=== PATIENT | female | born 1965 | race Caucasian/White ===

== ENCOUNTER → 2016-07-23 | Outpatient (CLI) | payer BC ==
--- NOTE | 2016-07-26 09:44 | MM ---
Reason for exam: screening (asymptomatic). Last mammogram was performed 1 year and 7 months ago. History: Family history of breast cancer in mother at age 68. Physical Findings: A clinical breast exam by your physician is recommended on an annual basis and results should be correlated with mammographic findings. MG 3D Screening Mammo W/Cad Bilateral CC and MLO view(s) were taken. Prior study comparison: December 25, 2014, bilateral MG 3d screening mammo w/cad. December 18, 2010, bilateral digital screening mammo w/CAD. The breast tissue is heterogeneously dense. This may lower the sensitivity of mammography. There is no discrete abnormality. ASSESSMENT: Negative, BI-RAD 1 RECOMMENDATION: Routine screening mammogram of both breasts in 1 year.
== END | disposition home or self-care (01) ==
LOC: RADMAMWWP 13:40
PROVIDERS: ATTEND Obstetrics & Gynecology
DX: Z12.31 Encounter for screening mammogram for malignant neoplasm of breast (principal); Z80.3 Family history of malignant neoplasm of breast
CPT/HCPCS: 77063; G0202

== ENCOUNTER → 2017-06-07 | Outpatient (CLI) | payer BC ==
--- NOTE | 2017-06-07 09:32 | MM ---
Reason for exam: clinical finding. Last mammogram was performed 10 months ago. History: Family history of breast cancer in mother at age 68. Physical Findings: Nurse Summary: 0.5cm nodule in the right breast at 1 o'clock (nurse ms). MG 3D Diag Mammo W/Cad SAAD Bilateral CC and MLO view(s) were taken. Prior study comparison: July 23, 2016, bilateral MG 3d screening mammo w/cad. December 25, 2014, bilateral MG 3d screening mammo w/cad. The breast tissue is heterogeneously dense. This may lower the sensitivity of mammography. Asymmetric breast tissue right subareolar, stable. There is no discrete abnormality. These results were verbally communicated with the patient and result sheet given to the patient on 06/07/17. ASSESSMENT: Incomplete: need additional imaging evaluation, BI-RAD 0 RECOMMENDATION: Ultrasound of the right breast. (palpable by nurse and patient)
--- NOTE | 2017-06-07 09:35 | USB ---
Reason for exam: additional evaluation requested from abnormal screening. History: Family history of breast cancer in mother at age 68. US Breast RT Right breast ultrasound includes all four quadrants, the retroareolar region and axilla. Finding demonstrates no cystic or solid lesion seen. Duct ectasia at the posterior nipple. These results were verbally communicated with the patient and result sheet given to the patient on 06/07/17. ASSESSMENT: Negative, BI-RAD 1 RECOMMENDATION: Return to routine screening mammogram schedule for both breasts. Manage on a clinical basis with regard to right palpable than comes and goes.
== END | disposition home or self-care (01) ==
LOC: RADMAMWWP 08:23
PROVIDERS: ATTEND Obstetrics & Gynecology
DX: N63.10 Unspecified lump in the right breast, unspecified quadrant (principal); R92.8 Other abnormal and inconclusive findings on diagnostic imaging of breast; Z80.3 Family history of malignant neoplasm of breast
CPT/HCPCS: 77062; 77066

== ENCOUNTER → 2018-07-05 | Outpatient (CLI) | payer BC ==
--- NOTE | 2018-07-06 09:58 | MM ---
Reason for exam: screening (asymptomatic). Last mammogram was performed 1 year and 1 month ago. History: Patient is postmenopausal. Family history of breast cancer in mother at age 68. Physical Findings: A clinical breast exam by your physician is recommended on an annual basis and results should be correlated with mammographic findings. MG 3D Screening Mammo W/Cad Bilateral CC and MLO view(s) were taken. Prior study comparison: June 07, 2017, bilateral MG 3d diag mammo w/cad SAAD. July 23, 2016, bilateral MG 3d screening mammo w/cad. The breast tissue is heterogeneously dense. This may lower the sensitivity of mammography. Finding: There is a 6 mm equal density (isodense) mass in the subareolar position of the right breast. ASSESSMENT: Incomplete: need additional imaging evaluation, BI-RAD 0 RECOMMENDATION: Special view mammogram and ultrasound of the right breast. [facility] will attempt to contact patient to return for supplemental views and ultrasound.
== END | disposition home or self-care (01) ==
LOC: RADMAMWWP 11:12
PROVIDERS: ATTEND Obstetrics & Gynecology
DX: Z12.31 Encounter for screening mammogram for malignant neoplasm of breast (principal); Z80.3 Family history of malignant neoplasm of breast
CPT/HCPCS: 77063; 77067

== ENCOUNTER → 2018-07-11 | Outpatient (CLI) | payer BC ==
--- NOTE | 2018-07-12 10:21 | MM ---
Reason for exam: additional evaluation requested from abnormal screening. Last mammogram was performed less than 1 month ago. History: Patient is postmenopausal. Family history of breast cancer in mother at age 68. Took hormonal contraceptives for 20 years beginning at age 18. Physical Findings: Nurse Summary: 0.5cm nodule in the right breast at 1 o'clock (nurse cw). MG 3D Work Up W/Cad RT Spot compression CC, spot compression MLO, and ML view(s) were taken of the right breast. Prior study comparison: July 05, 2018, bilateral MG 3d screening mammo w/cad. June 07, 2017, bilateral MG 3d diag mammo w/cad SAAD. The breast tissue is heterogeneously dense. This may lower the sensitivity of mammography. These results were verbally communicated with the patient and result sheet given to the patient on 07/11/18. ASSESSMENT: Incomplete: need additional imaging evaluation, BI-RAD 0 RECOMMENDATION: Ultrasound of the right breast.
--- NOTE | 2018-07-12 10:23 | USB ---
Reason for exam: additional evaluation requested from abnormal screening. History: Patient is postmenopausal. Family history of breast cancer in mother at age 68. Took hormonal contraceptives for 20 years beginning at age 18. US Breast Workup Limited RT Right limited breast ultrasound including focal area of concern, retroareolar and axilla demonstrates possible debris filled duct at the posterior nipple. These results were verbally communicated with the patient and result sheet given to the patient on 07/11/18. ASSESSMENT: Suspicious, BI-RAD 4 RECOMMENDATION: Surgical consultation of the right breast. Called Dr. Ramos with mammographic findings and has scheduled an appointment for the patient for 07/14/18 at 3:[address] Nayak. PRELIMINARY REPORT CALLED AND FAXED TO DR. NAYAK ON 07/12/18.
== END | disposition home or self-care (01) ==
LOC: RADMAMWWP 14:57
PROVIDERS: ATTEND Obstetrics & Gynecology
DX: R92.8 Other abnormal and inconclusive findings on diagnostic imaging of breast (principal)
CPT/HCPCS: 77061; 77065

== ENCOUNTER → 2018-07-14 | Outpatient (CLI) | payer BC ==
[2018-07-14 15:49] VITALS: BP 130/85; PULSE 62; RESP 18; TEMP 97.9; BMI 20.1
--- NOTE | 2018-07-14 16:58 | P.GSHP ---
History of Present Illness H&P Date: 07/14/18 Chief Complaint: abnormal mammogram and ultrasound of the right breast The patient is a 53 year old white female who noted an area of nodularity in her right breast in the 12:00. Area over area for about one year. The area did not show anything of concern radiographically last year. She does have come clear liquid that drains periodically from this site. She has never noted any blood from the nipple area. The drainage is only on the right side. She had a routine mammogram performed on 515 which revealed a 6 mm equal density mass in the subareolar position of the right breast. [place] [address] which revealed a debris filled duct at the posterior nipple area. She has not had any trauma, infection, or biopsies of the breast in the past. She has no pain in her breasts. Patient drinks coffee in the AM, no pop, or other caffeine. The patient is not taking any hormones. She is postmenopausal. Family history: 1. mother: mid 60's breast cancer, colon cancer 2. paternal aunts 2 : colon Hormonal history: Menarche: 11 first born at 24, did not breast feed menopause: 51 BCP: 15 years hormones: approximately 3 years ago, not since Past surgical history: 1. ACL right knee 2. meniscus right knee Medical history: Negative Social history: Smoking: Negative alcohol: wine 5 nights/week drugs: none - Constitutional Constitutional: Reports sweats - EENT Eyes: denies blurred vision, denies pain Ears: left: decreased hearing, deny: tinnitus Ears, nose, mouth and throat: Denies headache, Denies sore throat - Breasts Breasts: bilateral: as per HPI - Cardiovascular Cardiovascular: Denies chest pain, Denies shortness of breath - Respiratory Respiratory: Denies cough, Denies 7 - Gastrointestinal Gastrointestinal: Denies abdominal pain, Denies diarrhea, Denies nausea, Denies vomiting - Genitourinary (Female) Genitourinary: Denies dysuria, Denies hematuria - Menstruation Menstruation: Reports postmenopausal - Musculoskeletal Comment: joint pain - Integumentary Integumentary: Denies pruritus, Denies rash - Neurological Neurological: Denies numbness, Denies weakness - Psychiatric Psychiatric: Denies anxiety, Denies depression - Endocrine Endocrine: Denies fatigue, Denies weight change - Hematologic/Lymphatic Comment: none - Allergic/Immunologic Allergic/Immunologic: Reports seasonal allergies Past Medical History History of Any Multi-Drug Resistant Organisms: None Reported Smoking Status: Former smoker Medications and Allergies Home Medications Medication Instructions Recorded Confirmed Type Calcium Carbonate [Calcium] 600 mg PO 07/14/18 History metroNIDAZOLE [metroNIDAZOLE 1 applic TOPICAL 07/14/18 History Lotion] Allergies Allergy/AdvReac Type Severity Reaction Status Date / Time No Known Allergies Allergy Unverified 07/14/18 15:50 Surgical - Exam Vital Signs Temp Pulse Resp BP Pulse Ox 97.9 F 62 18 130/85 100 07/14/18 15:46 07/14/18 15:46 07/14/18 15:46 07/14/18 15:46 07/14/18 15:46 BMI 20.2 - General well developed, well nourished, no distress - Eyes normal ocular movement - ENT no hearing loss - Neck no masses, trachea midline - Respiratory normal respiratory effort, clear to auscultation - Cardiovascular Rhythm: regular Heart Sounds: normal: S1, S2 - Abdomen Abdomen: soft, non tender, no guarding, no rigid, no rebound - Integumentary normal turgor - Neurologic no disoriented, no combative - Musculoskeletal normal gait, normal posture - Psychiatric oriented to time, oriented to person, oriented to place, speech is normal, memory intact Right breast examination: Multiple positional exam fibrocystic changes, increased nodularity 12 o'clock position manipulation does cause some expression of clear fluid from the nipple complex this is guaiac positive Right axilla: No adenopathy of concern left breast: Multi-positional exam fibrocystic changes no dominant masses or nodules of concern Left axilla: No adenopathy of concern Guiac evaluation of right nipple discharge is positive Results Mammogram and ultrasound results reviewed Assessment and Plan Assessment: Impression: 1. Fibrocystic breast changes 2. Nipple discharge clear/guaiac positive 3. Abnormal mammogram 4. Family history of breast cancer 5. Questionable arthritis Plan: 1. Review of radiographs with radiology, question if a core biopsy could be performed 2. Probable duct exploration for bloody nipple discharge Cc: Dr. Ramos
== END | disposition home or self-care (01) ==
LOC: WWCWWP 15:34
PROVIDERS: ATTEND Surgery
DX: Z53.9 Procedure and treatment not carried out, unspecified reason (principal)

== ENCOUNTER → 2018-09-07 | Outpatient (CLI) | payer BC ==
[2018-09-07 14:44] VITALS: BP 123/74; PULSE 63; RESP 16; TEMP 98.1; BMI 20.9
--- NOTE | 2018-09-07 15:38 | P.GSHP ---
History of Present Illness H&P Date: 09/07/18 Chief Complaint: bloody nipple discharge The patient is a 53 year old white female who noted an area of nodularity in her right breast in the 12:00 position. Area over area for about one year. The area did not show anything of concern radiographically last year. She does have come clear liquid that drains periodically from this site. She has never noted any blood from the nipple area. The drainage is only on the right side. She had a routine mammogram performed on 515 which revealed a 6 mm equal density mass in the subareolar position of the right breast. This area seemed to dissipate with compression views. She subsequently [place] [address] which revealed a debris filled duct at the posterior nipple area. She has not had any trauma, infection, or biopsies of the breast in the past. She has no pain in her breasts. The patient continues to have spontaneous nipple discharge in the morning. Patient drinks coffee in the AM, no pop, or other caffeine. The radiographs were reviewed with radiology and it is felt that the dilated duct can be localized via needle localization. The patient is not taking any hormones. She is postmenopausal. Family history: 1. mother: mid 60's breast cancer, colon cancer 2. paternal aunts 2 : colon Hormonal history: Menarche: 11 first born at 24, did not breast feed menopause: 51 BCP: 15 years hormones: approximately 3 years ago, not since Past surgical history: 1. ACL right knee 2. meniscus right knee Medical history: Negative Social history: Smoking: Negative alcohol: wine 5 nights/week drugs: none - Constitutional Constitutional: Denies chills, Denies fever - EENT Eyes: denies blurred vision, denies pain Ears: deny: decreased hearing, tinnitus - Breasts Breasts: bilateral: as per HPI - Cardiovascular Cardiovascular: Denies chest pain, Denies shortness of breath - Respiratory Respiratory: Denies cough, Denies 7 - Gastrointestinal Gastrointestinal: Denies abdominal pain, Denies diarrhea, Denies nausea, Denies vomiting - Menstruation Menstruation: Reports postmenopausal - Musculoskeletal Musculoskeletal: Denies myalgias - Neurological Neurological: Denies numbness, Denies weakness - Psychiatric Psychiatric: Denies anxiety, Denies depression - Endocrine Endocrine: Denies fatigue, Denies weight change - Hematologic/Lymphatic Comment: none - Allergic/Immunologic Allergic/Immunologic: Reports seasonal allergies Past Medical History Past Medical History: Skin Disorder Additional Past Medical History / Comment(s): abn mammogram and breast us,roscea,seasonal alg History of Any Multi-Drug Resistant Organisms: None Reported Past Surgical History: Orthopedic Surgery Additional Past Surgical History / Comment(s): rt knee acl repair,rt knee meniscus Past Anesthesia/Blood Transfusion Reactions: No Reported Reaction Past Psychological History: No Psychological Hx Reported Smoking Status: Former smoker Past Alcohol Use History: Occasional Additional Past Alcohol Use History / Comment(s): smoked only during college,approx 30 yrs ago Past Drug Use History: None Reported - Past Family History Mother Family Medical History: Cancer Additional Family Medical History / Comment(s): colon,breast Medications and Allergies Home Medications Medication Instructions Recorded Confirmed Type Calcium Carbonate [Calcium] 600 mg PO DAILY 07/14/18 09/07/18 History metroNIDAZOLE [metroNIDAZOLE 1 applic TOPICAL HS 07/14/18 09/07/18 History Lotion] Ibuprofen [Advil] 200 - 400 mg PO Q8HR PRN 09/07/18 09/07/18 History Allergies Allergy/AdvReac Type Severity Reaction Status Date / Time No Known Allergies Allergy Unverified 09/07/18 14:45 Surgical - Exam Vital Signs Temp Pulse Resp BP Pulse Ox 98.1 F 63 16 123/74 99 09/07/18 14:39 09/07/18 14:39 09/07/18 14:39 09/07/18 14:39 09/07/18 14:39 BMI 21 - General well developed, well nourished, no distress - Eyes normal ocular movement - ENT no hearing loss, no congestion - Neck no masses, trachea midline - Respiratory normal respiratory effort, clear to auscultation - Cardiovascular Rhythm: regular Heart Sounds: normal: S1, S2 - Abdomen Abdomen: soft, non tender, no guarding, no rigid, no rebound - Integumentary normal turgor - Neurologic no disoriented, no combative - Musculoskeletal normal gait, normal posture - Psychiatric oriented to time, oriented to person, oriented to place, speech is normal, memory intact Breast examination: Right breast: Multiple positional exam dense breasts no dominant masses or nodules of concern At the 12 o'clock position there appears to be more dilated duct at the nipple that there is no discharge on today's examination Right axilla: No adenopathy of concern Left breast: Multi-positional exam dense breast, no dominant masses or nodules of concern Left axilla: No adenopathy of concern Results Mammogram and ultrasound reviewed with radiologist Assessment and Plan Assessment: Impression: 1. Fibrocystic breast changes 2. Nipple discharge right breast 3. Dilated duct on ultrasound right breast 4. Family history of breast cancer 5. Patient states she has spontaneous persistent nipple discharge in the mornings although this was not identified on today's examination. Plan: 1. After review of radiographs with radiologist they are going to do a needle localization of the dilated duct and then I will do a duct exploration in the operating room I discussed with the patient a ductogram versus a needle localization of the dilated duct and excision in the operating room. The patient wishes to proceed with a needle localization and excision of the duct in the operating room. She understands the risks and benefits. These may include bleeding infection reaction to the anesthetic. Additionally the patient may have some indentation at the nipple areolar complex and decreased sensation of the area. She wishes to proceed with a duct exploration. Cc: Dr. Ramos
== END | disposition home or self-care (01) ==
LOC: WWCWWP 14:31
PROVIDERS: ATTEND Surgery
DX: Z53.9 Procedure and treatment not carried out, unspecified reason (principal)

== ENCOUNTER 2018-09-12 07:28 | Day surgery (SDC) | payer BC ==
[2018-09-07 11:01] VITALS: BMI 20.1
[~2018-09-12 07:28] MED LIST: ALPRAZolam 0.5 MG TAB PO PRN; DEXAMETHASONE SOD PHOSPHATE 10 MG/ML 1 ML VIAL IV ONE; HEPARIN SODIUM,PORCINE 5,000 UNIT/ML 1 ML VIAL SQ ONE; HYDROmorphone 0.5 MG/0.5 ML SYRINGE IVP PRN; LACTATED RINGERS 1,000 ML IV SCH; ONDANSETRON 4 MG/2 ML VIAL IVP ONE; Pre Op ABX Message 1 EACH MISC MISCELLANE ONE
[2018-09-12] MEDS ORDERED: ENOXAPARIN 40 MG/0.4 ML SYRINGE SQ ONE (08:41)
[2018-09-12] MEDS ORDERED: LIDOCAINE 1% INJ 10MG/ML (20 ML MDV) SQ ONE ×2 (09:28→10:28)
[2018-09-12] MEDS ORDERED: fentaNYL (PF) 50 MCG/ML 2 ML AMP ONE (10:08)
[2018-09-12] MEDS ORDERED: PROPOFOL 10 MG/ML 20 ML VIAL IV ONE (10:08)
[2018-09-12] MEDS ORDERED: ePHEDrine SULFATE/0.9% NACL/PF 50 MG/5 ML SYRINGE IV ONE (10:08)
[2018-09-12] MEDS ORDERED: MIDAZOLAM 2 MG/2 ML VIAL ONE (10:08)
[2018-09-12] MEDS ORDERED: LIDOCAINE 1% INJ 10MG/ML (20 ML MDV) ONE (10:08)
[2018-09-12] MEDS ORDERED: HEPARIN SODIUM,PORCINE 5,000 UNIT/ML 1 ML VIAL SQ ONE (10:16)
[2018-09-12] MEDS ORDERED: LACTATED RINGERS 1,000 ML IV ONE (11:22)
--- NOTE | 2018-09-12 11:40 | P.OP ---
Date of Procedure: 09/12/18 Preoperative Diagnosis: Bloody nipple discharge right breast Postoperative Diagnosis: Same Procedure(s) Performed: Right breast duct exploration after needle localization Anesthesia: RYDER Surgeon: Madisyn Elam Estimated Blood Loss (ml): 5 IV fluids (ml): 900 Pathology: other (Right breast tissue) Condition: stable Disposition: same day Indications for Procedure: Bloody nipple discharge right breast Operative Findings: Dense breast tissue Description of Procedure: The patient is a 53-year-old white female who noted nipple discharge from the right side. Guaiac of this revealed it to be bloody. At the 12 o'clock position on the nipple was an area of dilated duct. The discharge seemed to emanate from. Additionally radiographically on ultrasound there was a dilated duct corresponding to this area. The risks and benefits of duct exploration were explained to the patient and her and they wish to proceed. Needle localization via ultrasound was performed of the dilated duct. The skin surface of the duct from which the discharge seemed to emanate was marked using a purple marking pen. The patient was taken to the operating suite. Following induction of anesthesia the right breast was prepped and draped in sterile fashion. A periareolar incision was made and carried down to the area of the needle. The needle was withdrawn from the skin. Dissection was performed up under the nipple complex and a dilated ductal system was identified and excised. Dissection was performed, following the ductal complex posteriorly to the area of the pectoralis muscle. Dissection was also performed medially along the area of the wire localization to ensure resection of the ductal complex of concern. The specimen was removed and sent to radiology where ultrasound of the specimen was performed. It was believed the area of concern had been removed. The wound was well irrigated. Hemostasis was attained using electrocautery device. Powerized surgicel was a applied. Titanium clips were used to rick the site. The deep tissues were closed using 3-0 Vicryl suture. Subcutaneous closure was performed using a 4-0 Vicryl suture. This was followed by a 4-0 Monocryl subcuticular suture. A 4-0 nylon was utilized on the skin. The patient tolerated the procedure in stable condition. Specimen was sent to pathology. All instrument and sponge counts were correct at the end of the case.
--- NOTE | 2018-09-12 11:43 | P.DS ---
Providers Attending physician: Madisyn Elam Primary care physician: Yennifer Joseph Plan - Discharge Summary Discharge Rx Participant: No New Discharge Prescriptions: No Action metroNIDAZOLE [metroNIDAZOLE Lotion] 1 applic TOPICAL HS Calcium Carbonate [Calcium] 600 mg PO DAILY Ibuprofen [Advil] 200 - 400 mg PO Q8HR PRN PRN Reason: Pain Discharge Medication List Calcium Carbonate [Calcium] 600 mg PO DAILY 07/14/18 [History] metroNIDAZOLE [metroNIDAZOLE Lotion] 1 applic TOPICAL HS 07/14/18 [History] Ibuprofen [Advil] 200 - 400 mg PO Q8HR PRN 09/07/18 [History] Follow up Appointment(s)/Referral(s): Madisyn Elam MD [STAFF PHYSICIAN] - 1 Week Activity/Diet/Wound Care/Special Instructions: Do not drive today wear bra until seen next week Patient may shower after 48 hours Discharge Disposition: HOME SELF-CARE
[2018-09-12 11:46] VITALS: TEMP 96.8
[2018-09-12 12:16] VITALS: RESP 18
[2018-09-12 12:37] VITALS: BP 108/72; PULSE 69
--- NOTE | 2018-09-12 13:40 | USB ---
EXAMINATION TYPE: US breast localization RT, US breast surgical specimen RT DATE OF EXAM: 09/12/2018 CLINICAL HISTORY: 53-year-old female with guaiac positive right breast nipple discharge. Referred for excision of dilated duct containing material. TECHNIQUE: Ultrasound-guided needle localization with wire placement and surgical excision of area of concern in the 1:00 subareolar right breast. COMPARISON: 07/11/2018 FINDINGS: The procedure of needle localization with wire placement and than surgical excision was explained to the patient. Benefits, alternatives, and risks were discussed. An informed consent was then obtaine d. The shortest pathway for procedure was chosen. Shortest pathway was a 12:00 approach marginating the nipple. The Overlying skin was prepped and draped in usual sterile fashion. Lidocaine was used as anesthetic into the skin and subcutaneous tissue up to the level of area of concern. A 5 cm Kopan's needle was used. It was placed via direct ultrasound guidance. The needle was passed up to 2.5 cm into the breast and traversed portions of the dilated duct. Ultrasound demonstrated the needle to be in satisfactory position relative to the targeted area. At this point, wire was placed and the needle was withdrawn. The wire was fixed to patient's skin. Vandana ges were marked for surgeon. The patient tolerated the procedure well without any immediate complica tion. The patient was kept in the radiology department for short stay after the procedure and then t aken to surgery for surgical excision. Specimen ultrasound, targeted area partially traversed by the wire, and wire are identified in the sp ecimen. The patient was kept in hospital for short stay after the procedure and then discharged home in stabl e condition. IMPRESSION: Successful, uncomplicated ultrasound-guided needle localization with wire placement and surgical exci shailesh of abnormally dilated, material filled 1:00 subareolar duct.
== END 2018-09-12 12:47 | disposition home or self-care (01) ==
LOC: OR 07:28
PROVIDERS: ATTEND Surgery
DX: N64.52 Nipple discharge (principal); N60.41 Mammary duct ectasia of right breast; N60.11 Diffuse cystic mastopathy of right breast; L71.9 Rosacea, unspecified; Z87.891 Personal history of nicotine dependence; Z80.3 Family history of malignant neoplasm of breast; Z80.0 Family history of malignant neoplasm of digestive organs; Z79.899 Other long term (current) drug therapy
CPT/HCPCS: 76999; 19285; 19110; J2250; J1644; J1100; J2405; J2001; J3010; J2704

== ENCOUNTER → 2018-09-21 | Outpatient (CLI) | payer BC ==
[2018-09-21 10:50] VITALS: BP 128/76; PULSE 59; RESP 18; TEMP 98.1; BMI 20.9
--- NOTE | 2018-09-21 10:51 | P.PN ---
Progress Note - Text Progress Note Date: 09/21/18 Claire is a 53-year-old white female status post right duct exploration on 72 [id number]. Pathology revealed an intraductal papilloma with apocrine metaplasia. Postoperatively she has no complaints. Physical exam: Lungs: Clear Heart: Regular rate and rhythm Incision: Clean and dry well-healed Impression: 1. 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 Repeat right breast mammogram in 6 months with physician exam at that time Cc: Dr. Yennifer Joseph
== END | disposition home or self-care (01) ==
LOC: WWCWWP 10:36
PROVIDERS: ATTEND Surgery
DX: Z53.9 Procedure and treatment not carried out, unspecified reason (principal)

== ENCOUNTER → 2018-11-17 | Outpatient (CLI) | payer BC ==
[2018-11-17 12:05] LABS: African American GFR (CKD) >90 (>60 ml/min/1.73 sqM); Anion Gap 10 mmol/L; Blood Urea Nitrogen 16 mg/dL (7-17); Carbon Dioxide 29 mmol/L (22-30); Chloride 103 mmol/L (98-107); Glucose 97 mg/dL (74-99); Potassium 4.7 mmol/L (3.5-5.1); Sodium 142 mmol/L (137-145)
[2018-11-17 12:24] LABS: Basophils # (A) 0.1 k/uL (0-0.2); Basophils % (A) 1 %; Eosinophils # (A) 0.2 k/uL (0-0.7); Eosinophils % (A) 6 %; HGB 13.7 gm/dL (11.4-16.0); Lymphocytes # (A) 1.5 k/uL (1.0-4.8); Lymphocytes % (A) 38 %; MCH 30.5 pg (25.0-35.0); MCHC 34.2 g/dL (31.0-37.0); MCV 89.3 fL (80.0-100.0); Mean Platelet Volume 5.7; Monocytes # (A) 0.4 k/uL (0-1.0); Monocytes % (A) 10 %; Neutrophils # (A) 1.6 k/uL (1.3-7.7); Neutrophils % (A) 41 %; Platelet Count 362 k/uL (150-450); RBC 4.48 m/uL (3.80-5.40); RDW 12.4 % (11.5-15.5); WBC 3.9 k/uL (3.8-10.6)
== END ==
LOC: LABPAT 10:23
PROVIDERS: ATTEND Obstetrics & Gynecology
DX: Z01.812 Encounter for preprocedural laboratory examination (principal); N81.4 Uterovaginal prolapse, unspecified; N81.10 Cystocele, unspecified
CPT/HCPCS: 36415; 80051; 82565; 82947; 84520; 85025; 86850; 86900; 86901; 87086

== ENCOUNTER 2018-11-27 06:03 | Observation (INO) | payer BC ==
--- NOTE | 2018-11-23 12:02 | HP ---
HISTORY AND PHYSICAL History and physical for surgery on November 27. This is a 53-year-old white female, 2, para 2-0-0-2, who presents for a history of increasing perineal bulge, incomplete emptying of the bladder, and difficulty with intercourse that has been evolving over the past several years. She estimates the bulge to be approximately golf ball size. She states she has to frequently change position to completely empty her bladder. After thorough physical examination and discussion of options, patient is electing to proceed with vaginal hysterectomy and anterior repair. We have discussed in detail the risks, benefits, and alternatives to surgery. She is declining the use of pessary. She does consent to oophorectomy if abnormal findings are noted in the operating room. PAST MEDICAL HISTORY: Past medical history is significant for abnormal Pap smear cells in 1999, Pap smears normal to follow. She has a history of irritable bowel syndrome and rosacea, along with a distant history of HSV infection. PAST SURGICAL HISTORY: ACL repair in 2001, breast biopsies of negative pathology, cryotherapy of the cervix, EGD with biopsies in 2006, and right knee arthroscopy. CURRENT MEDICATIONS: Estradiol pellets, APPEALS MANAGER Thyroid 30 mg 2 tabs in the morning and 1 tab in the afternoon, Prometrium 200 mg tablet each evening. ALLERGIES: None known. PAST FAMILY HISTORY: Significant for hypothyroidism, multiple sclerosis, colon cancer, and postmenopausal breast cancer. OBSTETRIC HISTORY: Significant for 2 vaginal deliveries, full term, 7 pounds 8 ounce and 7 pounds 15 ounce babies. SOCIAL HISTORY: Patient works at in [place]. She is , a former tobacco smoker, social alcohol use, no history of drug or nonprescription drug use. PHYSICAL EXAMINATION: On exam, this is a pleasant white female who is 5 feet, 5 inches, 129 pounds, blood pressure 116/70, patient is afebrile. HEENT exam reveals no thyromegaly, good dentition, no obvious cervical lymphadenopathy. Breasts are bilaterally symmetric to inspection with no skin dimpling, nipple discharge, axillary adenopathy, or discernible lesions or masses. Abdomen is soft, nontender, scaphoid, active bowel sounds, no organosplenomegaly. Chest is clear to auscultation in all ochoa anteriorly and posteriorly. Cardiac exam reveals regular rate and rhythm with no murmur, click, or rub. Extremities reveal no edema, there are good peripheral pulses. On pelvic examination, there is a grade 2 to 3 uterine prolapse noted, with a grade 3 cystocele. No obvious rectocele. Good sphincter tone. Adnexa negative to palpation bilaterally. IMPRESSION: Increasingly symptomatic uterine prolapse and cystocele, patient at this time requesting surgical intervention. PLAN: We will proceed with vaginal hysterectomy and cystocele repair. Ovaries will be inspected and left in situ if within normal limits. She does, however, consent to oophorectomy if any abnormal findings are noted. All risks, benefits, and alternatives again have been discussed, the ACOG pamphlet on pelvic organ prolapse is also been received and reviewed. She understands the risks of bleeding, infection, perforation or damage to bowel, bladder, ureters, any abdominal or pelvic organs. Risks of anesthesia are also discussed. All questions answered. MMODL / IJN: [id number] /
[2018-11-27] MEDS ORDERED: DEXAMETHASONE SOD PHOSPHATE 10 MG/ML 1 ML VIAL IV ONE (06:07)
[2018-11-27] MEDS ORDERED: fentaNYL (PF) 50 MCG/ML 2 ML AMP IV PRN (06:07)
[2018-11-27] MEDS ORDERED: LIDOCAINE 1% 20 ML VIAL (10MG/ML) FOR IV START INTRADERMA PRN (06:07)
[2018-11-27] MEDS ORDERED: MIDAZOLAM 2 MG/2 ML VIAL IV PRN (06:07)
[2018-11-27] MEDS ORDERED: LACTATED RINGERS 1,000 ML IV ONE ×2 (06:31→08:11)
[2018-11-27] MEDS ORDERED: ONDANSETRON 4 MG/2 ML VIAL IVP ONE (06:52)
[2018-11-27] MEDS ORDERED: PROPOFOL 10 MG/ML 20 ML VIAL IV ONE (07:25)
[2018-11-27] MEDS ORDERED: GLYCOPYRROLATE 0.2 MG/ML 2 ML VIAL ONE (07:25)
[2018-11-27] MEDS ORDERED: fentaNYL (PF) 50 MCG/ML 2 ML AMP ONE (07:25)
[2018-11-27] MEDS ORDERED: MORPHINE SULFATE (PF) 0.3 MG/0.3 ML SYR ONE (07:25)
[2018-11-27] MEDS ORDERED: MIDAZOLAM 2 MG/2 ML VIAL ONE (07:25)
[2018-11-27] MEDS ORDERED: ceFAZolin 1,000 MG VIAL IVPB ONE (07:35)
[2018-11-27] MEDS ORDERED: MORPHINE SULFATE (PF) 1 MG/ML AMP EPIDURAL ONE (07:35)
[2018-11-27] MEDS ORDERED: VASOPRESSIN 20 UNIT/ML 1 ML VIAL SQ ONE ×2 (07:48)
[2018-11-27] MEDS ORDERED: BACITRACIN 500 UNIT/GM OINT 28.4 GM TUBE TOPICAL ONE (08:23)
[2018-11-27] MEDS ORDERED: ONDANSETRON 4 MG/2 ML VIAL IVP PRN (09:04)
[2018-11-27] MEDS ORDERED: METOCLOPRAMIDE 5 MG/ML 2 ML VIAL IVP PRN (09:04)
[2018-11-27] MEDS ORDERED: SIMETHICONE 80 MG CHEWABLE PO PRN (09:04)
[2018-11-27] MEDS ORDERED: IBUPROFEN 600 MG TAB PO PRN (09:04)
[2018-11-27] MEDS ORDERED: KETOROLAC 30 MG/ML 1 ML VIAL IVP PRN ×2 (09:04→09:44)
--- NOTE | 2018-11-27 09:04 | P.OP ---
Date of Procedure: 11/27/18 Preoperative Diagnosis: Grade 3-4 cystocele, grade 2-3 uterine prolapse, both symptomatic. Postoperative Diagnosis: Same, normal-appearing ovaries bilaterally. Procedure(s) Performed: Vaginal hysterectomy, anterior colporrhaphy Anesthesia: spinal Surgeon: Farida Ramos Civil Engineering Teacher #1: Christian Matos Estimated Blood Loss (ml): 75 IV fluids (ml): 1,100 Urine output (ml): 250 Pathology: other (Cervix and uterus) Condition: stable Disposition: PACU Operative Findings: Normal-appearing, atrophic ovaries bilaterally. Description of Procedure: Patient is brought to the operating suite where a spinal with Duramorph is placed. She's put in the dorsal lithotomy position. The cervix, vagina, perineal bodies are all prepped and draped in usual sterile fashion. Antibiotics were given. The appropriate timeout was performed to assure proper patient and procedural identification. Weighted speculum was placed into the vagina and the bladder is drained for approximately 250 mL of clear yellow urine. Anterior lip of the cervix is grasped with a double-tooth tenaculum and the cervix was injected circumferentially with dilute Pitressin solution. A jamul blade scalpel is used to incise the mucosa circumferentially with a V positioning at 6:00. A sponge rolled finger is used to sweep the mucosa well from the operative field to avoid bladder and/or ureteral injury. Peritoneum is entered at 6:00 and suture tied with 2-0 Vicryl. The large billed speculum is then placed into the peritoneal cavity. The right uterosacral ligament is identified, clamped cut and suture ligated and held with a hemostat. Same procedure is carried out contralaterally. Uterine vasculature is carefully skeletonized, clamped cut and suture ligated. Again, bladder is Well from the operative field to avoid any urologic injury. 2 additional pedicles are taken superior to the vessels. Anterior peritoneum was entered at 12:00. Ana clamps are used across the final pedicles and the cervix and uterus are removed and sent to pathology. The pedicles are tied with 0 Vicryl suture in a Nomi fashion, flashed, and retied for excellent hemostasis. Sponge stick is then used to visualize the ovaries and these are within normal limits, atrophic, symmetric, and therefore left in situ. The large billed speculum is then changed to the shallow billed speculum. The 2-0 Vicryl suture placed at 6:00 is brought around in a pursestring fashion to close the peritoneum. The uterosacral cardinal ligament stitches are now brought across to incorporate the opposite ligament as well as vaginal mucosa to close the vaginal cuff. An additional [id number] suture is used and the vaginal cuff posteriorly for excellent reapproximation. Hemostasis is very good. Anterior repair is then commenced. Allis clamps are used on the upper vaginal mucosa and the mucosa is injected in the midline by the same dilute Pitressin solution, an additional 10 mL used. Metzenbaum scissors are used in the midline to undermine and then incise the mucosa. The edges are held in a fanlike fashion with Allis clamps. The incision is taken to approximately 1.5 cm inferior to the urethra. The Leon catheter is placed in the bladder is once again drained. A sponge rolled finger is used to sweep the underlying fascia from the overlying mucosa. 2-0 Vicryl is used in an interrupted fashion to bring the fascial edges together in the midline thereby completely reducing the cystocele. Metzenbaum scissors are used to trim the redundant mucosa. 2-0 Vicryl is used to close the mucosa in a running locking manner. Hemostasis is excellent. All sponge needle and enhancement counts are correct. Leon is noted to be draining clear urine. The vagina is packed with one-inch iodophor gauze with basic tracing. Total estimated blood loss 75 mL's. Patient is brought back to the recovery room in stable condition with blood pressure 99/60, pulse 54, 100% O2 saturation.
[2018-11-27] MEDS ORDERED: NALBUPHINE 10 MG/ML (1 ML AMP) IV PRN (09:44)
[2018-11-27] MEDS ORDERED: MORPHINE SULFATE 2 MG/ML SYRINGE IVP PRN (09:44)
[2018-11-27] MEDS ORDERED: NALOXONE 0.4 MG/ML 1 ML VIAL IV PRN (09:44)
[2018-11-27] MEDS: diphenhydrAMINE 50 MG/ML 1 ML VIAL IVP PRN (11:58)
[2018-11-27] MEDS: LACTATED RINGERS 1,000 ML IV SCH ×2 (13:32→16:48)
[2018-11-27 14:16] VITALS: BMI 20.7
[2018-11-28] MEDS: diphenhydrAMINE 50 MG/ML 1 ML VIAL IVP PRN (03:30)
--- NOTE | 2018-11-28 08:23 | P.DS ---
Providers Date of admission: 11/27/18 23:17 Expected date of discharge: 11/28/18 Attending physician: Farida Ramos Primary care physician: [facility] Course: This is a 53-year-old white female 2 para 2001 who presented with increasingly symptomatic perineal bulge. She was noted to have uterine prolapse as well as cystocele, and after consultation decided to proceed with surgery. She is an essentially healthy individual, on no home meds, please see dictated history and physical for details. Patient underwent vaginal hysterectomy and cystocele repair yesterday under my care. She did well intraoperatively, ovaries appeared normal and were left in situ per her wishes. Vagina was packed with iodoform gauze Leon catheter placed. Please see dictated operative note for details. Spinal with Duramorph was utilized. This morning the patient is doing well. Leon catheter and vaginal packing had been removed. She is voiding, ambulating, passing flatus without difficulty. Vital signs are stable and she has remained afebrile. She had some postoperative nausea last night which has completely resolved. There is no CVA tenderness.. He'll body is clean and dry with no bleeding. Patient is judged to be in very good condition for discharge home. Bladder training is happening now, she will be discharged when residual is less than 100 mL's. She will use [id number] Advil or Aleve, or ibuprofen as needed for pain. I reminded her no intercourse, tampons or douching. No heavy lifting, no driving for 2 weeks. She will call with any fevers shakes or chills, foul smelling or bloody vaginal drainage, with any pain not alleviated by [id number] products, with any back pain, or indeed with any concerns. Patient Condition at Discharge: Good Plan - Discharge Summary Discharge Rx Participant: Yes New Discharge Prescriptions: No Action metroNIDAZOLE [metroNIDAZOLE Lotion] 1 applic TOPICAL HS Discharge Medication List metroNIDAZOLE [metroNIDAZOLE Lotion] 1 applic TOPICAL HS 07/14/18 [History] Follow up Appointment(s)/Referral(s): Fariad Ramos MD [STAFF PHYSICIAN] - 2 Weeks Discharge Disposition: HOME SELF-CARE
[2018-11-28 10:04] VITALS: BP 95/57; PULSE 67; TEMP 98.7
[2018-11-28 11:39] VITALS: RESP 18
--- NOTE | 2018-11-28 14:21 | P.PN ---
Progress Note - Text 11/28 619 am 53 year old female s/p vaginal hystrectomy.pt had a spinal duramorph for post op pain control. she has a vas of 0 ,no c/o of nausea or pruritis.
== END 2018-11-28 12:13 | disposition home or self-care (01) ==
LOC: OR 06:03 → 6PED 08:52 → OR 23:32
PROVIDERS: ADMIT Obstetrics & Gynecology; ATTEND Obstetrics & Gynecology
DX: N81.2 Incomplete uterovaginal prolapse (principal); N80.0 Endometriosis of uterus; K58.9 Irritable bowel syndrome, unspecified; L71.9 Rosacea, unspecified; B00.9 Herpesviral infection, unspecified; Z87.42 Personal history of other diseases of the female genital tract; Z87.891 Personal history of nicotine dependence; Z82.0 Family history of epilepsy and other diseases of the nervous system; Z80.3 Family history of malignant neoplasm of breast; Z80.0 Family history of malignant neoplasm of digestive organs; Z83.49 Family history of other endocrine, nutritional and metabolic diseases
CPT/HCPCS: 94760; 88307; 58260; 57240; G0378 ×2; J2250; J1200 ×2; J1100; J2765; J2405; J0690; J2274 ×2; J3010; J2704; 86850; 86900; 86901

== ENCOUNTER 2019-01-11 07:29 | Observation (INO) | payer BC ==
[2019-01-11] MEDS ORDERED: ONDANSETRON 4 MG/2 ML VIAL IVP STA (07:47)
[2019-01-11] MEDS ORDERED: SODIUM CHLORIDE 0.9% 1,000 ML IV STA (07:47)
[2019-01-11] MEDS ORDERED: HYDROmorphone 0.5 MG/0.5 ML SYRINGE IVP STA (07:47)
--- NOTE | 2019-01-11 07:49 | ED ---
Chest Pain HPI - General Source: patient, family, RN notes reviewed, old records reviewed Mode of arrival: wheelchair Limitations: no limitations <Shruti Cunningham - Last Filed: 01/11/19 11:20> <Raysa Slater - Last Filed: 01/20/19 00:13> - General Chief Complaint: Chest Pain Stated Complaint: Chest pain, SOB Time Seen by Provider: 01/11/19 07:40 - History of Present Illness Initial Comments: Patient is a 53-year-old female, she presents emergency department today with onset of left-sided chest pain that radiates towards her left shoulder. It started on Tuesday. She reports that she was treated with antibiotics for upper respiratory infection and finished her Z-Saman as well as had a shot of steroids last week. She reports that the cough has diminished. She reports that her pain is worsening with a deep breath. She has a history of right breast surgery, right knee and ACL repair right meniscus repair. History of rosacea. She takes no medications at this time. (Shruti Cunningham) - Related Data Home Medications Medication Instructions Recorded Confirmed metroNIDAZOLE [metroNIDAZOLE 1 applic TOPICAL HS 07/14/18 01/11/19 Lotion] Ibuprofen [Advil] 400 mg PO Q8HR PRN 01/11/19 01/11/19 Previous Rx's Medication Instructions Recorded Amoxic-Pot Clav 875-125Mg 1 each PO Q12HR #8 tab 01/13/19 [Augmentin 875-125] predniSONE 10 mg PO DIRECTED #30 tab 01/13/19 Allergies Allergy/AdvReac Type Severity Reaction Status Date / Time gluten Allergy Itching Verified 01/11/19 08:35 morphine AdvReac Severe Nausea & Verified 01/11/19 08:35 Vomiting Review of Systems ROS Other: All systems not noted in ROS Statement are negative. <Shruti Cunningham - Last Filed: 01/11/19 11:20> ROS Other: All systems not noted in ROS Statement are negative. <Raysa Slater - Last Filed: 01/20/19 00:13> ROS Statement: Those systems with pertinent positive or pertinent negative responses have been documented in the HPI. Past Medical History Past Medical History: Pneumonia, Skin Disorder Additional Past Medical History / Comment(s): [place], hx Pneumonia 2 yrs ago. History of Any Multi-Drug Resistant Organisms: None Reported Past Surgical History: Breast Surgery, Hysterectomy, Orthopedic Surgery Additional Past Surgical History / Comment(s): Right breast surgery, right knee acl repair, right knee meniscus repair. Past Anesthesia/Blood Transfusion Reactions: No Reported Reaction Past Psychological History: No Psychological Hx Reported Smoking Status: Former smoker Past Alcohol Use History: Occasional Past Drug Use History: None Reported - Past Family History Mother Family Medical History: Cancer Additional Family Medical History / Comment(s): Colon & breast cancer. <Shruti Cunningham - Last Filed: 01/11/19 11:20> General Exam Limitations: no limitations General appearance: alert, in no apparent distress Head exam: Present: atraumatic, normocephalic, normal inspection Eye exam: Present: normal appearance, PERRL, EOMI. Absent: scleral icterus, conjunctival injection, periorbital swelling ENT exam: Present: normal exam, mucous membranes moist Neck exam: Present: normal inspection. Absent: tenderness, meningismus, lymphadenopathy Respiratory exam: Present: normal lung sounds bilaterally. Absent: respiratory distress, wheezes, rales, rhonchi, stridor Cardiovascular Exam: Present: regular rate, normal rhythm, normal heart sounds. Absent: systolic murmur, diastolic murmur, rubs, gallop, clicks GI/Abdominal exam: Present: soft, normal bowel sounds. Absent: distended, guarding, rebound, rigid Extremities exam: Present: normal inspection, full ROM, normal capillary refill. Absent: tenderness, pedal edema, joint swelling, calf tenderness Back exam: Present: normal inspection Neurological exam: Present: alert, oriented X3, CN II-XII intact Psychiatric exam: Present: normal affect, normal mood Skin exam: Present: warm, dry, intact, normal color. Absent: rash <Shruti Cunningham - Last Filed: 01/11/19 11:20> - General Exam Comments Initial Comments: 53-year-old female. Alert and oriented. (Shruti Cunningham) Course Vital Signs 01/11/19 01/11/19 01/11/19 07:33 09:00 09:37 Temperature 97.3 F L Pulse Rate 82 63 68 Respiratory 19 21 16 Rate Blood Pressure 147/83 125/92 126/73 O2 Sat by Pulse 96 98 Oximetry 01/11/19 12:24 Temperature 98 F Pulse Rate 67 Respiratory 16 Rate Blood Pressure 114/76 O2 Sat by Pulse 98 Oximetry Chest Pain [facility] <Shruti Cunningham - Last Filed: 01/11/19 11:20> <Raysa Slater - Last Filed: 01/20/19 00:13> - [facility] Patient is a 53-year-old female presents today for evaluation for concerns for left-sided pleuritic chest pain sudden onset today. She's been treated with azithromycin for bronchitis and upper respiratory infection this past week. She reports that her cough seems to be somewhat diminishing at this time. She will emergency department with shallow breathing, appeared in moderate discomfort. Vipul garcia's blood work was reviewed relatively unremarkable. He did have a positive d-dimer. They first CAT scan was performed. EKG shows accelerated junctional rhythm, not rule out anterior infarct age undetermined. Abnormal EKG noted. Ventricular rate is 79 bpm. Intervals and affect. She religion 86 most seconds. QT QTc is 360/[address] shows No evidence for pulmonary embolus. Trace left pleural effusion with adjacent atelectasis and/or early infiltrate. Correlate for any infectious signs or symptoms to exclude early pneumonia. Soft tissue fullness in the subcarinal region measures 2.4 x 1.5 cm. Lymphadenopathy or massive also exclude. Collapse esophagus and part accounts for this density. Depending on patient's risk factors for malignancy and clinical suspicion consider PET/CT versus 3 months follow-up contrast-enhanced CT to reassess. There is a prominent once a meter right infrahilar lymph node that she also can be reassessed to follow-up. Since the patient's pain seems to be pleuritic, related to the pleural effusion. I also mentioned to the Patient the abnormal densities and the subcarinal region. Patient denies any history of smoking or history of cancers. Patient and this I will be treated with antibiotics for pneumonia, and we'll have respiratory evaluate Patient for breathing treatments. Discussed the case with Dr. Slater who discussed the case with Dr. Ledesma. Adding Procalcitonin. (Shruti Cunningham) I was available for consultation in the emergency department. The history and physical exam were done by the midlevel provider. I was consulted for this patients care. I reviewed the case with the midlevel provider and based on their presentation of the patient, I agree with the assessment, medical decision making and plan of care as documented. I agree with hospital admission. I discussed the case with Dr. Acuna who accepted admission. Chart was dictated using [employer] dictation software. Attempts were made to correct any dictation errors however some typographical errors may persist. (Raysa Slater) Disposition Is patient prescribed a controlled substance at d/c from ED?: No Time of Disposition: 11:23 <Shruti Cunningham - Last Filed: 01/11/19 11:20> <Raysa Slater - Last Filed: 01/20/19 00:13> Clinical Impression: Pleurisy, Abnormal CT scan, chest, Pneumonia, Chest pain Disposition: ADMITTED IP TO THIS HOSP Condition: Stable
[2019-01-11] MEDS: SODIUM CHLORIDE 0.9% 1,000 ML IV STA ×2 (08:11→13:44)
[2019-01-11] MEDS ORDERED: KETOROLAC 30 MG/ML 1 ML VIAL IVP STA (08:11)
[2019-01-11 08:21] LABS: Basophils # (A) 0.1 k/uL (0-0.2); Basophils % (A) 1 %; Eosinophils # (A) 0.2 k/uL (0-0.7); Eosinophils % (A) 2 %; HCT 38.7 % (34.0-46.0); HGB 13.1 gm/dL (11.4-16.0); Lymphocytes # (A) 1.6 k/uL (1.0-4.8); Lymphocytes % (A) 21 %; MCH 30.5 pg (25.0-35.0); MCHC 33.8 g/dL (31.0-37.0); MCV 90.2 fL (80.0-100.0); Mean Platelet Volume 6.2; Monocytes # (A) 0.4 k/uL (0-1.0); Monocytes % (A) 5 %; Neutrophils % (A) 69 %; Platelet Count 495 k/uL (150-450); RBC 4.29 m/uL (3.80-5.40); RDW 12.2 % (11.5-15.5); WBC 7.3 k/uL (3.8-10.6)
[2019-01-11 08:34] LABS: ALT 15 U/L (9-52); AST 25 U/L (14-36); African American GFR (CKD) >90 (>60 ml/min/1.73 sqM); Albumin 4.5 g/dL (3.5-5.0); Alkaline Phosphatase 66 U/L (38-126); Amylase 41 U/L (30-110); Anion Gap 11 mmol/L; Blood Urea Nitrogen 11 mg/dL (7-17); Carbon Dioxide 27 mmol/L (22-30); Chloride 104 mmol/L (98-107); Glucose 98 mg/dL (74-99); Non-African American GFR(CKD) 87 (>60 ml/min/1.73 sqM); Potassium 4.3 mmol/L (3.5-5.1); Sodium 142 mmol/L (137-145); Total Bilirubin 0.5 mg/dL (0.2-1.3); Total Protein 7.8 g/dL (6.3-8.2)
[2019-01-11 08:38] LABS: INR 0.9 (<1.2); Partial Thromboplastin Time 26.3 sec (22.0-30.0); Prothrombin Time 9.7 sec (9.0-12.0)
--- NOTE | 2019-01-11 08:40 | XR ---
EXAMINATION TYPE: XR chest 2V DATE OF EXAM: 01/11/2019 CLINICAL HISTORY: Chest pain TECHNIQUE: Frontal and lateral views of the chest are obtained. COMPARISON: None FINDINGS: There is no focal air space opacity, pleural effusion, or pneumothorax seen. The cardiac silhouette size is within normal limits. The osseous structures are intact. IMPRESSION: No acute cardiopulmonary process.
[2019-01-11 09:01] LABS: D-Dimer 0.73 mg/L FEU (<0.60)
--- NOTE | 2019-01-11 09:51 | CT ---
EXAMINATION TYPE: CT chest angio for PE DATE OF EXAM: 01/11/2019 COMPARISON: None HISTORY: 53-year-old female with left sided rib pain without injury and inability to take in a deep b reath. Pain, shortness of breath, d-dimer. TECHNIQUE: Contiguous axial scanning of the chest performed with IV Contrast, patient injected with 1 00 mL of Isovue 300. Coronal/sagittal MIP reconstructions performed. CT DLP: 329.6 mGycm Automated exposure control for dose reduction was used. FINDINGS: Heart normal size without pericardial effusion. Aorta normal caliber with variant direct takeoff of the left vertebral artery directly from the aorti c arch. Satisfactory opacification of pulmonary arterial system. No flattening of the interventricular septum or reflux of contrast into the hepatic veins. There is soft tissue fullness in the subcarinal region measuring 2.4 x 1.5 cm. The esophagus courses through this region and in part accounts for this density. No abnormal proximal esophageal dilatation . Prominent right infrahilar lymph node measures 1.0 cm on axial image 67. Prominent dependent atelectasis at the posterior lung bases. Trace left pleural effusion and more pat radha posterior left basilar opacity and opacity within the inferior lingula. There are 6 hepatic hypodensities, likely small cysts, too small for accurate CT characterization of the largest measuring 1.4 cm. Adrenal glands are clear. Mottled arterial phase enhancement of the spl een with tiny anterior splenule. Bones: Normal variant sternal foramen. No osseous destructive process. IMPRESSION: 1. NO EVIDENCE FOR PULMONARY EMBOLUS. 2. TRACE LEFT PLEURAL EFFUSION WITH ADJACENT ATELECTASIS AND/OR EARLY INFILTRATE. CORRELATE FOR ANY I NFECTIOUS SIGNS/SYMPTOMS TO EXCLUDE AN EARLY PNEUMONIA HERE. 3. SOFT TISSUE FULLNESS IN THE SUBCARINAL REGION MEASURES 2.4 X 1.5 CM. UNDERLYING LYMPHADENOPATHY OR MASS DIFFICULT TO EXCLUDE AT THIS TIME. THE COLLAPSED ESOPHAGUS IN PART ACCOUNTS FOR THIS DENSITY. D EPENDING ON PATIENT'S RISK FACTORS FOR MALIGNANCY AND CLINICAL SUSPICION, CONSIDER PET CT VERSUS 3 MO NTH FOLLOW-UP CONTRAST ENHANCED CT TO REASSESS. 4. A PROMINENT 1 CM RIGHT INFRAHILAR LYMPH NODE CAN ALSO BE REASSESSED AT FOLLOW-UP.
[2019-01-11] MEDS ORDERED: cefTRIAXone IN SWFI 1,000 MG/10 ML SYRINGE IVP STA (10:57)
[2019-01-11] MEDS ORDERED: PNEUMONIA PROTOCOL UTILIZED 1 EACH MISC PO PRN (11:25)
[2019-01-11] MEDS ORDERED: LORazepam 2 MG/ML INJ IV PRN (11:27)
[2019-01-11] MEDS ORDERED: NALOXONE 0.4 MG/ML 1 ML VIAL IV PRN (11:27)
[2019-01-12] MEDS: IBUPROFEN 600 MG TAB PO PRN ×2 (07:59→20:13)
--- NOTE | 2019-01-12 08:19 | XR ---
EXAMINATION TYPE: XR chest 2V DATE OF EXAM: 01/12/2019 COMPARISON: 01/11/2019 HISTORY: Chest pain TECHNIQUE: Frontal and lateral views of the chest are obtained. FINDINGS: There is no focal air space opacity. No evidence for pneumothorax. No pleural effusion. The cardiac silhouette size is within normal limits. The osseous structures are grossly intact. IMPRESSION: 1. No acute cardiopulmonary process.
[2019-01-12] MEDS: predniSONE 20 MG TAB PO SCH (13:17)
[2019-01-12] MEDS: AMOXIC-POT CLAV 875-125MG 1 EACH TAB PO SCH ×2 (13:25→20:11)
[2019-01-12] MEDS: IPRATROPIUM-ALBUTEROL 3 ML NEB INHALATION PRN ×2 (15:15→20:18)
--- NOTE | 2019-01-12 23:09 | P.HPIM ---
History of Present Illness H&P Date: 01/12/19 Chief Complaint: cough, cp Claire Wood is a 53 yo F who presnted to the ED with pleuritic chest pain x4 days. She states her symptoms initially developed 2 weeks ago, she was seen in PCP office and given decadron shot and thought to be viral. She continued to experience symptoms so returned to clinic Tuesday and was given azithromycin. Pt complains that despite antibiotics she has continued to experience L sided inspiratory chest pain since Tuesday as well as URI symptoms. She denies fevers or chills. She is a nonsmoker. In the ED vital stable WBC 7.2, procal negative, trop negative x3. Review of Systems All systems: negative Constitutional: Denies chills, Denies fever Eyes: denies blurred vision, denies pain Ears, nose, mouth and throat: Denies headache, Denies sore throat Cardiovascular: Reports chest pain, Denies shortness of breath Respiratory: Reports cough, Reports dyspnea, Reports pain on inspiration Gastrointestinal: Denies abdominal pain, Denies diarrhea, Denies nausea, Denies vomiting Genitourinary: Denies dysuria, Denies hematuria Musculoskeletal: Denies myalgias Integumentary: Denies pruritus, Denies rash Neurological: Denies numbness, Denies weakness Psychiatric: Denies anxiety, Denies depression Endocrine: Denies fatigue, Denies weight change Past Medical History Past Medical History: Pneumonia, Skin Disorder Additional Past Medical History / Comment(s): Pneumonia in 2017, rosacia, varicose veins History of Any Multi-Drug Resistant Organisms: None Reported Past Surgical History: Breast Surgery, Hysterectomy, Orthopedic Surgery Additional Past Surgical History / Comment(s): R breast needle loc/bx, R knee ACL, R knee meniscus, hysterectomy with cystocele repair, EGD, colonoscopy. Past Anesthesia/Blood Transfusion Reactions: No Reported Reaction Smoking Status: Former smoker - Past Family History Mother Family Medical History: Cancer Additional Family Medical History / Comment(s): Colon & breast cancer. Mother is living. Father Family Medical History: No Reported History Additional Family Medical History / Comment(s): Father is living. Medications and Allergies Home Medications Medication Instructions Recorded Confirmed Type metroNIDAZOLE [metroNIDAZOLE 1 applic TOPICAL HS 07/14/18 01/11/19 History Lotion] Azithromycin [Zithromax Z-pack] See Taper PO DIRECTED 01/11/19 01/11/19 History Ibuprofen [Advil] 400 mg PO Q8HR PRN 01/11/19 01/11/19 History Allergies Allergy/AdvReac Type Severity Reaction Status Date / Time gluten Allergy Itching Verified 01/11/19 08:35 morphine AdvReac Severe Nausea & Verified 01/11/19 08:35 Vomiting Physical Exam Vitals: Vital Signs Temp Pulse Pulse Pulse Resp BP Pulse Ox 01/12/19 20:30 64 01/12/19 20:18 64 01/12/19 20:15 98.1 F 68 18 114/71 94 L 01/12/19 15:27 72 01/12/19 15:16 70 01/12/19 14:45 98.5 F 68 15 110/73 95 01/12/19 07:17 96 01/12/19 07:00 98.1 F 70 16 127/80 94 L 01/12/19 04:02 16 01/12/19 01:10 97.8 F 64 16 118/78 94 L 01/11/19 23:20 16 Intake and Output 01/12/19 01/12/19 01/12/19 06:59 14:59 22:59 Output Total 160 Balance -160 Output: Urine 160 Other: Voiding Method Toilet Toilet # Voids 2 2 3 Weight 56.245 kg General: well nourished, well developed, NAD. Vitals reviewed Eyes: PERRL, EOMI, conjunctiva normal HENT: normocephalic, mucus membranes moist Neck: supple, no JVD Lungs: normal respiratory effort, no wheezes or rales CV: Regular rate and rhythm, no murmur. Peripheral pulses 2+ Abdomen: soft, nondistended, no organomegaly Lymph: no cervical or axillary LAD Skin: warm and dry. Neuro: A&Ox3, normal mood and affect Results CBC & Chem 7: 01/11/19 08:02 01/11/19 08:02 Labs: Microbiology - Last 24 Hours (Table) 01/11/19 11:38 Blood Culture - Preliminary Blood No Growth after 24 hours Thrombosis Risk Factor Assmnt - Choose All That Apply Any of the Below Risk Factors Present?: Yes Each Factor Represents 1 point: Serious lung disease incl. pneumonia (< 1month), Varicose veins Other Risk Factors: No Other congenital or acquired thrombophilia - If yes, enter type in comment: No Thrombosis Risk Factor Assessment Total Risk Factor Score: 2 Thrombosis Risk Factor Assessment Level: Low Risk Assessment and Plan (1) Acute viral bronchitis Current Visit: Yes Status: Acute Code(s): J20.8 - ACUTE BRONCHITIS DUE TO OTHER SPECIFIED ORGANISMS SNOMED Code(s): 461014105 (2) Chest pain Current Visit: Yes Status: Acute Code(s): R07.9 - CHEST PAIN, UNSPECIFIED SNOMED Code(s): 46807383 (3) Pleurisy Current Visit: Yes Status: Acute Code(s): R09.1 - PLEURISY SNOMED Code(s): 828263608 Plan: 1. Chest pain. ACS ruled out, secondary to pleurisy. Prednisone, ibuprofen. Rowena benavidez planning in progress for tomorrow 2. Viral bronchitis. WBC and procalcitonin negative. Empiric coverage with augmentin
[2019-01-13 02:03] VITALS: RESP 16
[2019-01-13 08:00] VITALS: BP 109/67; TEMP 98.2
[2019-01-13] MEDS: AMOXIC-POT CLAV 875-125MG 1 EACH TAB PO SCH (08:42)
[2019-01-13] MEDS: predniSONE 20 MG TAB PO SCH (08:42)
[2019-01-13] MEDS: IPRATROPIUM-ALBUTEROL 3 ML NEB INHALATION PRN (11:16)
[2019-01-13 11:37] VITALS: PULSE 75
--- NOTE | 2019-01-13 22:49 | DS ---
DISCHARGE SUMMARY FINAL DIAGNOSES: 1. Acute viral bronchitis with severe pleurisy and chest pain with failure of outpatient treatment. 2. Acute myocardial infarction and coronary syndrome ruled out. 3. Increased platelets. 4. Elevated D-dimer with no evidence of pulmonary embolism. 5. FULL CODE. 6. Left trace pleural effusion. DISCHARGE DISPOSITION: The patient will be discharged in stable condition with guarded prognosis. HISTORY OF PRESENT ILLNESS: This 53-year-old woman with a past medical history of multiple medical problems was admitted with significant left-sided chest pain. The patient followed by Dr. Yennifer Joseph in the outpatient setting. Dr. Ledesma saw the patient and CTA of the chest showed no evidence of pulmonary embolism, however, trace abnormalities including left pleural effusion and some soft tissue fullness was suspected. Recommended outpatient followup. Prominent 1 cm right infrahilar lymph node also noted. The patient was treated with IV steroids and empiric antibiotics. Patient improved significantly. Patient is extremely keen on going home at this time. Patient discharged in stable condition with guarded prognosis with further plans to follow up with Dr. Yennifer Joseph in the outpatient setting. On exam, vitals are stable. Cardiovascular system: S1, S2. Abdomen soft. Nervous system: No focal deficits. DISCHARGE ADVICE AND MEDICATIONS: 1. Discharge diet is cardiac diet. 2. Activity limited until followup. 3. Follow up with Dr. Yennifer Joseph in 1-[address] scan as an outpatient setting in the next 2-3 months. 5. Ibuprofen p.r.n. 6. Flagyl topical as before. 7. Augmentin 1 p.o. b.i.d. for 4 days. 8. Prednisone taper 40 mg for 3 days, 30 for 3 days, 20 for 3 days, 10 for 3 days. 9. Follow up labs with Dr. Joseph. Once again, the patient is being discharged in stable condition with guarded prognosis. MMODL / IJN: [id number] /
== END 2019-01-13 13:09 | disposition home or self-care (01) ==
LOC: EC 07:29 → 3NMEDONC 11:25 → 4SSUR 12:38
PROVIDERS: ADMIT Family Medicine; ATTEND Family Medicine
DX: J20.8 Acute bronchitis due to other specified organisms (principal); Z80.3 Family history of malignant neoplasm of breast; Z87.01 Personal history of pneumonia (recurrent); Z87.891 Personal history of nicotine dependence; Z90.710 Acquired absence of both cervix and uterus; Z79.1 Long term (current) use of non-steroidal anti-inflammatories (NSAID); Z79.899 Other long term (current) drug therapy; Z88.5 Allergy status to narcotic agent; Z91.018 Allergy to other foods; R79.89 Other specified abnormal findings of blood chemistry; J90 Pleural effusion, not elsewhere classified; I83.90 Asymptomatic varicose veins of unspecified lower extremity; L71.9 Rosacea, unspecified
CPT/HCPCS: 96361 ×3; 96374; 96375; 99285; 36415; 94640 ×3; 94760; 93005; 85379; 83880; 80053; 82150; 83605; 83690; 83735; 84484; 85025; 85610; 85730; 87040; 84145; 71046 ×2; 71275; G0378 ×4; J0696; J1885; J7512 ×2; Q9967

== ENCOUNTER → 2019-01-15 | Outpatient (CLI) | payer BC ==
[2019-01-15 13:12] LABS: Basophils # (A) 0.1 k/uL (0-0.2); Basophils % (A) 1 %; Eosinophils # (A) 0.1 k/uL (0-0.7); Eosinophils % (A) 1 %; HCT 36.3 % (34.0-46.0); HGB 12.4 gm/dL (11.4-16.0); Lymphocytes # (A) 3.1 k/uL (1.0-4.8); Lymphocytes % (A) 41 %; MCH 31.3 pg (25.0-35.0); MCHC 34.3 g/dL (31.0-37.0); MCV 91.2 fL (80.0-100.0); Mean Platelet Volume 6.3; Monocytes # (A) 0.5 k/uL (0-1.0); Monocytes % (A) 7 %; Neutrophils # (A) 3.8 k/uL (1.3-7.7); Neutrophils % (A) 49 %; Platelet Count 533 k/uL (150-450); RBC 3.98 m/uL (3.80-5.40); RDW 12.2 % (11.5-15.5); WBC 7.7 k/uL (3.8-10.6)
[2019-01-15 18:45] LABS: African American GFR (CKD) 96.2 (60.0-200.0); BUN/Creat Ratio 16.25 Ratio (12.00-20.00); Calcium 10.2 mg/dL (8.7-10.3); Potassium 4.5 mmol/L (3.5-5.5)
== END | disposition home or self-care (01) ==
LOC: LABWHC1 12:03
PROVIDERS: ATTEND Hospitalist
DX: R09.1 Pleurisy (principal)
CPT/HCPCS: 36415; 80048; 85025

== ENCOUNTER → 2019-01-27 | Outpatient (CLI) | payer BC ==
--- NOTE | 2019-01-30 08:12 | PE ---
EXAMINATION TYPE: PET CT fusion skull to thigh DATE OF EXAM: 01/27/2019 COMPARISON: CT chest dated 01/11/2019 HISTORY: Solitary pulmonary nodule. Initial exam. TECHNIQUE: Following the intravenous administration of 11.89 mCi of F-18 FDG, whole body images are performed from the skull base to the midthigh. Images are reviewed on the computer in the coronal, a xial, and sagittal planes. Reconstructed rotating images are created on independent workstation and reviewed on the computer. A localization and attenuation correction CT is performed in conjunction with the PET scan. SCAN: Initial FINDINGS: Mediastinal background: 1.5 Abdominal background: 2.31 SKULL BASE AND NECK: No suspicious hypermetabolic uptake. CHEST, MEDIASTINUM, AND HILAR REGION: No suspicious hypermetabolic uptake. The previously seen bibasi lar consolidations have resolved. Very minimal bibasilar atelectasis is now seen. No suspicious pulmo nary nodule or mass. The subcarinal lymph node is now separable from the adjacent esophagus and measures 9 mm in short axi s, within normal limits. No hypermetabolic uptake. This has a maximum SUV of 1.3, lower than mediasti nal background ABDOMEN AND PELVIS: No suspicious hypermetabolic uptake. Diffuse linear FDG avidity is seen in the st omach along both the lesser and greater curvature with a maximum SUV of 3.6. This most commonly relat es to gastritis. OSSEOUS STRUCTURES: No suspicious hypermetabolic uptake. OTHER CT: The thyroid gland is slightly heterogenous without focal lesion. Incidentally noted left-si ded ten bullosa and scant mucosal thickening of the ethmoid sinuses as well as mild polypoid mucos al thickening of the inferior maxillary sinuses. Moderate degree colonic fecal stasis is seen. Incide ntally noted left hepatic cysts measuring up to 1.3 cm. Hypoattenuated area near the pancreatic uncin ate process appears to represent portal splenic confluence and SMV on the prior PET/CT. Remaining une nhanced viscera appear unremarkable. IMPRESSION: 1. Pulmonary consolidations have resolved. No suspicious pulmonary mass or nodule. Mediastinal soft t issue may have related to reactive adenopathy however no adenopathy is now seen. No suspicious hyperm etabolic uptake in the chest. 2. Linear uptake along both the lesser and greater curvature the stomach. Most commonly this would pr ovide to gastritis. Correlate with patient's symptoms to determine the need for direct visualization with endoscopy.
== END | disposition home or self-care (01) ==
LOC: RADPETMAIN 09:48
PROVIDERS: ATTEND Family Medicine
DX: R91.8 Other nonspecific abnormal finding of lung field (principal)
CPT/HCPCS: 78815; A9552

== ENCOUNTER → 2019-03-22 | Outpatient (CLI) | payer BC ==
[2019-03-22 10:08] VITALS: BP 145/69; PULSE 58; RESP 18; TEMP 97.9
--- NOTE | 2019-03-22 10:28 | P.PN ---
Subjective Progress Note Date: 03/22/19 Principal diagnosis: surveillance intraductal papilloma Claire is a 53-year-old white female who is status post right breast duct exploration done . Pathology revealed an intraductal papilloma with apocrine metaplasia. The patient has had no further nipple discharge from either side. [place] [address] which was felt to be benign of the right breast. She is not complaining of any lumps masses or pain in either breast at this time. caffeine: 1-2 cups/day chocolate: none smoke: none hormones: none at this time Family history: 1. mother: mid 60's breast cancer, colon cancer 2. paternal aunts 2 : colon Hormonal history: Menarche: 11 first born at 24, did not breast feed menopause: 51 BCP: 15 years hormones: approximately 3 years ago, not since Past surgical history: 1. ACL right knee 2. meniscus right knee 3. hysterectomy done for prolapse December 28 Medical history: pneumonia fall of 2018, hospitalized 3 days; and initial chest CT reveals some fullness in the subcarinal region measuring 2.4 x 1.5 cm. PET scan done on 01-27-19; a subcarinal lymph node 9 mm in short axis within normal limits was identified. referred to DR. Reis; also uptake is increased lung lesser and greater curve of the stomach this is believed to be most likely related to gastritis and she is following with this Dr. Joseph Social history: Smoking: Negative alcohol: wine 5 nights/week drugs: none - Constitutional Constitutional: Denies chills, Denies fever - EENT Eyes: denies blurred vision, denies pain Ears: deny: decreased hearing, tinnitus - Breasts Breasts: bilateral: as per HPI - Cardiovascular Cardiovascular: Denies chest pain, Denies shortness of breath - Respiratory Respiratory: pneumonia December - Gastrointestinal Gastrointestinal: Denies abdominal pain, Denies diarrhea, Denies nausea, Denies vomiting - Menstruation Menstruation: Reports hysterectomy - Musculoskeletal Musculoskeletal: Denies myalgias - Neurological Neurological: Denies numbness, Denies weakness - Psychiatric Psychiatric: Denies anxiety, Denies depression - Endocrine Endocrine: Denies fatigue, Denies weight change - Hematologic/Lymphatic Comment: none - Allergic/Immunologic Allergic/Immunologic: Reports seasonal allergies Objective - Constitutional General appearance: Present: average body habitus, thin - EENT Eyes: Present: EOMI ENT: Present: hearing grossly normal - Neck Details: no adenopathy of concern Neck: Present: normal ROM - Respiratory Respiratory: bilateral: CTA - Cardiovascular Rhythm: regular Heart sounds: normal: S1, S2 - Gastrointestinal General gastrointestinal: Present: normal bowel sounds, soft - Integumentary Integumentary: Present: normal turgor - Musculoskeletal Musculoskeletal: Present: gait normal - Psychiatric Psychiatric: Present: A&O x's 3, appropriate affect, intact judgment & insight - Additional findings Additional findings: breast exam: inspection: Well-healed scar right breast from prior surgery, no nipple inversion, no skin lesions of concern Right breast: Multi-positional exam fibrocystic changes, no dominant masses or nodules of concern Right axilla: No adenopathy of concern Left breast: Multiple positional exam no dominant masses or nodules of concern, fibrocystic changes Left axilla: No adenopathy of concern Assessment and Plan Assessment: Impression: 1. status post right duct exploration/ intraductal papilloma 2. fibrocystic breast changes 3. pneumonia 4. status post hysterectomy 5. right breast mammogram reviewed with DR. Del Castillo Plan: 1. repeat bilateral mammogram in 6 months 2. discussed decreasing caffeine 3. repeat exam in 6 months CC: DR. Joseph encounter: 25 minutes, > 50% of time in planning and counselling Time with Patient: Less than 30
== END | disposition home or self-care (01) ==
LOC: WWCWWP 09:42
PROVIDERS: ATTEND Surgery
DX: Z53.9 Procedure and treatment not carried out, unspecified reason (principal)

== ENCOUNTER → 2019-03-22 | Outpatient (CLI) | payer BC ==
--- NOTE | 2019-03-22 09:48 | MM ---
Reason for exam: follow-up at short interval from prior study. Last mammogram was performed 8 months ago. History: Patient is postmenopausal. Family history of breast cancer in mother at age 68. Benign US breast localization RT of the right breast, September 12, 2018. Took hormonal contraceptives for 20 years beginning at age 18. Taking progesterone beginning at age 53. Physical Findings: Nurse did not find any significant physical abnormalities on exam. MG 3D Diag Mammo W/Cad RT CC and MLO view(s) were taken of the right breast. Prior study comparison: July 11, 2018, right breast MG 3d work up w/cad RT. July 05, 2018, bilateral MG 3d screening mammo w/cad. The breast tissue is heterogeneously dense. This may lower the sensitivity of mammography. No suspicious abnormality. Post surgical change on the right. These results were verbally communicated with the patient and result sheet given to the patient on 03/22/19. ASSESSMENT: Benign, BI-RAD 2 RECOMMENDATION: Return to routine screening mammogram schedule for both breasts. Back on schedule for June 2019.
== END | disposition home or self-care (01) ==
LOC: RADMAMWWP 08:54
PROVIDERS: ATTEND Surgery
DX: R92.8 Other abnormal and inconclusive findings on diagnostic imaging of breast (principal)
CPT/HCPCS: 77061; 77065

== ENCOUNTER → 2019-04-19 | Outpatient (CLI) | payer BC ==
[2019-04-19 08:23] LABS: ALT 14 U/L (4-34); AST 30 U/L (14-36); African American GFR (CKD) >90 (>60 ml/min/1.73 sqM); Albumin 4.6 g/dL (3.5-5.0); Alkaline Phosphatase 58 U/L (38-126); Anion Gap 7 mmol/L; Blood Urea Nitrogen 12 mg/dL (7-17); Calcium 9.7 mg/dL (8.4-10.2); Carbon Dioxide 28 mmol/L (22-30); Chloride 104 mmol/L (98-107); Cholesterol 240 mg/dL (<200); Glucose 91 mg/dL (74-99); HDL Cholesterol 99 mg/dL (40-60); LDL Cholesterol,Calculated 121 mg/dL (0-99); Non-African American GFR(CKD) 85 (>60 ml/min/1.73 sqM); Potassium 4.1 mmol/L (3.5-5.1); Sodium 139 mmol/L (137-145); Total Bilirubin 0.3 mg/dL (0.2-1.3); Total Protein 7.3 g/dL (6.3-8.2); Triglycerides 98 mg/dL (<150)
[2019-04-19 08:35] LABS: Basophils % (A) 1 %; Eosinophils # (A) 0.1 k/uL (0-0.7); Eosinophils % (A) 4 %; HCT 41.6 % (34.0-46.0); HGB 13.3 gm/dL (11.4-16.0); Lymphocytes # (A) 1.6 k/uL (1.0-4.8); Lymphocytes % (A) 40 %; MCH 29.7 pg (25.0-35.0); Mean Platelet Volume 7.6; Monocytes # (A) 0.2 k/uL (0-1.0); Monocytes % (A) 5 %; Neutrophils # (A) 1.9 k/uL (1.3-7.7); Neutrophils % (A) 47 %; Platelet Count 377 k/uL (150-450); RBC 4.48 m/uL (3.80-5.40); RDW 12.6 % (11.5-15.5)
[2019-04-19 08:40] LABS: T4, Free (Free Thyroxine) 0.92 ng/dL (0.78-2.19)
--- NOTE | 2019-04-19 08:57 | CT ---
EXAMINATION TYPE: CT chest w con DATE OF EXAM: 04/19/2019 COMPARISON: CTA chest January 11, 2019. PET/CT January 27, 2019 HISTORY: cough, pleurisy CT DLP: 130.9 mGycm. Automated Exposure Control for Dose Reduction was Utilized. TECHNIQUE: CT scan of the thorax is performed following with IV Contrast, patient injected with 100 mL of Isovue 300. FINDINGS: LUNGS: Current study lungs are dominantly clear with minimal dependent atelectasis in the lower lungs . No new areas of suspicious consolidation or groundglass opacity. No pleural effusion or pneumothora x bilaterally. Mild linear scarring and/or atelectatic change near diaphragm bilaterally. MEDIASTINUM: There are no greater than 1 cm hilar or mediastinal lymph nodes. No cardiomegaly or pe ricardial effusion is seen. There is four vessel origin from aortic arch which is normal variant. OTHER: Scattered round hypodense lesions throughout the liver particularly left hepatic lobe are rede monstrated favoring thin-walled cysts. On last few images there is 1.1 cm low dense lesion in the diaz creas near uncinate process axial image 66 likely corresponding to PET CT axial image 146 consistent with cystic intrapancreatic lesion. No suspicious hypermetabolic uptake on recent PET CT noted. IMPRESSION: 1. Interval resolution of left greater than right bibasilar atelectasis and/or consolidation. No new suspicious focal infiltrate. Interval resolution of thoracic adenopathy. 2. Note is made of 1.1 cm cystic lesion in the pancreas uncinate process level, consider MRI/MRCP fol low-up to better evaluate and characterize if this is not known finding.
[2019-04-19 09:32] LABS: C Reactive Protein <5.0 mg/L (<10.0)
[2019-04-19 16:02] LABS: Rheumatoid Factor, Qnt 11 IU/mL (0-15)
[2019-04-19 16:39] LABS: Immunoglobulin E 5.63 IU/mL (0.00-114.00)
[2019-04-19 16:42] LABS: Anti-Smith Ab Interp NEGATIVE (NEGATIVE)
[2019-04-19 17:08] LABS: Hemoglobin A1C 5.2 % (4.0-6.0)
[2019-04-20 11:17] LABS: Immunoglobulin M 47.7 mg/dL (40.0-280.0)
[2019-04-20 11:23] LABS: IgG Subclass 3 14.1 mg/dL (11.0-85.0)
== END | disposition home or self-care (01) ==
LOC: RADCTMAIN 07:29
PROVIDERS: ATTEND Internal Medicine Critical Care Medicine
DX: R05 Cough (principal); Z88.5 Allergy status to narcotic agent
CPT/HCPCS: 86235 ×3; 84439; 80061; 80053; 82164; 84443; 85025; 86140; 86431; 82784 ×3; 82785; 82306; 82787; 86038; 83036; 71260; 36415; Q9967

== ENCOUNTER → 2019-05-07 | Outpatient (CLI) | payer BC | END | disposition home or self-care (01) | DX: K86.9 Disease of pancreas, unspecified (principal) | CPT/HCPCS: 74183; A9585 ==

== ENCOUNTER → 2020-06-13 | Outpatient (CLI) | payer BC ==
[2020-06-13 10:16] LABS: Appearance,Urine Cloudy (Clear); Bilirubin,Urine Negative (Negative); Blood,Urine Negative (Negative); Calcium Oxalate Crystals,Urine Many /hpf; Color,Urine Yellow; Glucose,Urine (UA) Negative (Negative); Ketones,Urine Negative (Negative); Leukocyte Esterase,Urine Small (Negative); Mucus,Urine Moderate /hpf; Nitrite,Urine Negative (Negative); PH, Urine 5.5 (5.0-8.0); Protein,Urine Negative (Negative); RBC,Urine 3 /hpf (0-5); Specific Gravity,Urine 1.022 (1.001-1.035); Squamous Epithelial Cell,Urine <1 /hpf (0-4); Urobilinogen,Urine <2.0 mg/dL (<2.0); WBC,Urine 3 /hpf (0-5)
[2020-06-13 15:31] LABS: Basophils # (A) 0.03 X 10*3/uL (0.00-0.10); Basophils % (A) 0.7 %; Eosinophils # (A) 0.09 X 10*3/uL (0.04-0.35); Eosinophils % (A) 2.2 %; HCT 39.7 % (37.2-46.3); HGB 12.9 g/dL (12.0-15.0); Lymphocytes # (A) 1.79 X 10*3/uL (0.90-5.00); Lymphocytes % (A) 44.4 %; MCH 29.3 pg (27.0-32.0); MCHC 32.5 g/dL (32.0-37.0); Mean Platelet Volume 10.1 fL (9.5-12.2); Monocytes # (A) 0.29 X 10*3/uL (0.20-1.00); Monocytes % (A) 7.2 %; Neutrophils # (A) 1.82 X 10*3/uL (1.80-7.70); Neutrophils % (A) 45.3 %; Platelet Count 385 X 10*3/uL (140-440); RBC 4.41 X 10*6/uL (4.10-5.20); RDW 12.9 % (11.5-14.5); WBC 4.03 X 10*3/uL (4.50-10.00)
[2020-06-13 18:53] LABS: Hemoglobin A1C 5.5 % (4.0-6.0)
[2020-06-14 01:24] LABS: African American GFR (CKD) 94.9 (60.0-200.0); Albumin 4.8 g/dL (3.80-4.90); Albumin/Globulin Ratio 2.4 (1.60-3.17); Anion Gap 10.9 mmol/L (4.00-12.00); BUN/Creat Ratio 17.5 Ratio (12.00-20.00); Calcium 9.9 mg/dL (8.7-10.3); Carbon Dioxide 25.1 mmol/L (21.6-31.8); Chol/HDL Ratio 3.17; LDL Cholesterol,Calculated 136.8 mg/dL (0.0-131.0); Non-African American GFR(CKD) 81.8 (60.0-200.0); Potassium 4.7 mmol/L (3.5-5.5); Total Bilirubin 0.5 mg/dL (0.2-1.2); Total Protein 6.8 g/dL (6.2-8.2); VLDL Calculation 15.2 mg/dL (5.00-40.00)
[2020-06-14 01:31] LABS: T4, Free (Free Thyroxine) 1.1 ng/dL (0.80-1.80)
== END | disposition home or self-care (01) ==
LOC: LABWHC1 08:19
PROVIDERS: ATTEND Internal Medicine Critical Care Medicine
DX: Z00.00 Encounter for general adult medical examination without abnormal findings (principal); E78.5 Hyperlipidemia, unspecified; E55.9 Vitamin D deficiency, unspecified; L71.9 Rosacea, unspecified; N39.0 Urinary tract infection, site not specified; J45.909 Unspecified asthma, uncomplicated
CPT/HCPCS: 36415; 80053; 80061; 81001; 82306; 83036; 84439; 84443; 85025; 87086

== ENCOUNTER → 2020-06-18 | Outpatient (CLI) | payer BC ==
--- NOTE | 2020-06-18 12:14 | CT ---
EXAMINATION TYPE: CT soft tissue neck w con DATE OF EXAM: 06/18/2020 10:47 AM COMPARISON: None HISTORY: Mass left side neck CT DLP: 302.0 mGycm Automated exposure control for dose reduction was used. CONTRAST: CT scan of the neck is performed following with IV Contrast, patient injected with 100 mL of Isovue 3 00. Axial images are obtained, coronal and sagittal reformatted images are reviewed. FINDINGS: A marker is placed over the area of palpable abnormality. There is no sizable soft tissue mass. Shott y adenopathy seen bilaterally in the carotid space. No encapsulated lipoma identified. Oropharynx and nasopharynx symmetric. Vocal cords normal. Thyroid enhances normally. Lung apices sumi r. There is degenerative disc disease C5-C6. Submandibular glands are symmetric. Parotid glands have a n ormal appearance. Intraorbital and intracranial structures appear symmetric. Changes of mucous retent ion cyst, polyp and mild chronic sinusitis. Mild atherosclerotic change involving the origin of the e xternal carotid artery bilaterally. Carotid bifurcation. IMPRESSION: 1. No sizable mass or pathologic.
== END | disposition home or self-care (01) ==
LOC: RADCTMAIN 09:49
PROVIDERS: ATTEND Internal Medicine Critical Care Medicine
DX: R22.1 Localized swelling, mass and lump, neck (principal)
CPT/HCPCS: 70491; Q9967

== ENCOUNTER → 2020-07-25 | Outpatient (CLI) | payer BC ==
--- NOTE | 2020-07-25 11:14 | MM ---
Reason for exam: screening (asymptomatic). Last mammogram was performed 1 year and 4 months ago. History: Patient is postmenopausal. Family history of breast cancer in mother at age 68. Benign US breast localization RT of the right breast, September 12, 2018. Took hormonal contraceptives for 20 years beginning at age 18. Took progesterone beginning at age 53. Physical Findings: A clinical breast exam by your physician is recommended on an annual basis and results should be correlated with mammographic findings. MG 3D Screening Mammo W/Cad Bilateral CC and MLO view(s) were taken. Prior study comparison: March 22, 2019, right breast MG 3d diag mammo w/cad RT. July 05, 2018, bilateral MG 3d screening mammo w/cad. June 07, 2017, bilateral MG 3d diag mammo w/cad SAAD. The breast tissue is heterogeneously dense. This may lower the sensitivity of mammography. There are surgical changes. There is no discrete abnormality. ASSESSMENT: Benign, BI-RAD 2 RECOMMENDATION: Routine screening mammogram of both breasts in 1 year.
== END | disposition home or self-care (01) ==
LOC: RADMAMWWP 07:54
PROVIDERS: ATTEND Family Medicine
DX: Z12.31 Encounter for screening mammogram for malignant neoplasm of breast (principal); Z78.0 Asymptomatic menopausal state; Z80.3 Family history of malignant neoplasm of breast
CPT/HCPCS: 77063; 77067

== ENCOUNTER → 2021-07-27 | Outpatient (CLI) | payer BC ==
--- NOTE | 2021-07-28 19:59 | MM ---
Reason for Exam: Screening (asymptomatic). Last screening mammogram was performed 12 month(s) ago. Patient History: Menarche at age 10. First Full-Term at age 24. Hysterectomy at age 53. Postmenopausal. Progesterone, starting at age 53. Hormonal Contraceptives for 20 years from age 18 until age 38. 09/12/2018, Benign Core Biopsy on the right side. Mother had breast cancer, age 68. Risk Values: Awilda 5 year model risk: 3.1%. NCI Lifetime model risk: 17.0%. Prior Study Comparison: 07/11/2018 Right Diagnostic Mammogram, [facility]. 03/22/2019 Right Diagnostic Mammogram, [facility]. 07/25/2020 Bilateral Screening Mammogram, [facility]. Tissue Density: The breast tissue is heterogeneously dense. This may lower the sensitivity of mammography. Findings: Analyzed By CAD. Postexcisional changes medial right breast. No significant change from prior exams. Overall Assessment: Benign, BI-RAD 2 Management: Screening Mammogram of both breasts in 1 year. A clinical breast exam by your physician is recommended on an annual basis and results should be correlated with mammographic findings. Also, the patient should continue monthly self breast exams. Electronically signed and approved by: Kristin Gracia M.D. Radiologist
== END | disposition home or self-care (01) ==
LOC: RADMAMWWP 15:56
PROVIDERS: ATTEND Family Medicine
DX: Z12.31 Encounter for screening mammogram for malignant neoplasm of breast (principal); Z78.0 Asymptomatic menopausal state; Z80.3 Family history of malignant neoplasm of breast
CPT/HCPCS: 77063; 77067

== ENCOUNTER → 2022-07-29 | Outpatient (CLI) | payer BC ==
--- NOTE | 2022-07-29 19:02 | BD ---
EXAMINATION TYPE: Axial Bone Density DATE OF EXAM: 07/29/2022 CLINICAL HISTORY: 57 year old Female. ICD-10 CODE: Z78.0 MENOPAUSAL STATE Height: 66 Weight: 120.5 FRAX RISK QUESTIONS: Alcohol (3 or more units per day): no Family History (Parent hip fracture): yes Glucocorticoids (More than 3mos): no (Ex: prednisone, prednisolone, methylprednisolone, dexamethasone, and hydrocortisone). History of Fracture in Adulthood: yes Secondary Osteoporosis: 1. Type 1 Diabetes: no 2. Hyperthyroidism: no 3. Menopause before 45: no 4. Malnutrition: no 5. Chronic liver disease: no Rheumatoid Arthritis: no Current Tobacco Use: no RISK FACTORS HISTORY OF: History of Wrist Fracture: left When: age 38 Surgery to Spine/Hip(right/left)/Wrist (right/left): no Family History of Osteoporosis: yes Active: yes Diet low in dairy products/other sources of calcium: no Postmenopausal woman: yes Lost more than 2 inches in height since high school: no MEDICATIONS: Additional History: EXAM MEASUREMENTS: Bone mineral densitometry was performed using the [employer] System. Bone mineral density as measured about the Lumbar spine is: ----- L1-L4(G/cm2): 0.924 T Score Values are as follows: ----- L1: -2.3 ----- L2: -1.7 ----- L3: -2.0 ----- L4: -2.6 ----- L1-L4: -2.1 Z Score Values are as follows: ----- L1: -0.8 ----- L2: -0.3 ----- L3: -0.5 ----- L4: -1.1 ----- L1-L4: -0.7 Bone mineral density : baseline Bone mineral density about the R hip (g/cm2): 0.577 Bone mineral density about the L hip (g/cm2): 0.591 T Score values are as follows: -----R Neck: -3.2 -----L Neck: -3.2 -----R Total: -3.4 -----L Total: -3.3 Z Score values are as follows: -----R Neck: -1.8 -----L Neck: -1.8 -----R Total: -2.3 -----L Total: -2.2 Bone mineral density : baseline FRAX%s: The graph provided illustrates a 37.8% chance for a major osteoporotic fx and a 8.9% chance f or the hips probability for fx in 10 years time. IMPRESSION: Osteoporosis (T Score less than -2.5). There is increased fracture risk and therapy is usually indicated based on age. Re-Screen 1-2 years. NOTE: T-SCORE=SD OF THE YOUNG ADULT MEAN.
--- NOTE | 2022-07-30 18:11 | MM ---
Reason for Exam: Screening (asymptomatic). Last screening mammogram was performed 12 month(s) ago. Patient History: Menarche at age 10. First Full-Term at age 24. Hysterectomy at age 53. Postmenopausal. Progesterone, starting at age 53. Hormonal Contraceptives for 20 years from age 18 until age 38. 09/12/2018, Benign Core Biopsy on the right side. Mother had breast cancer, age 68. Risk Values: Awilda 5 year model risk: 3.2%. NCI Lifetime model risk: 16.6%. Prior Study Comparison: 07/23/2016 Bilateral Screening Mammogram, [facility]. 06/07/2017 Bilateral Diagnostic Mammogram, [facility]. 07/05/2018 Bilateral Screening Mammogram, [facility]. 07/11/2018 Right Diagnostic Mammogram, [facility]. 03/22/2019 Right Diagnostic Mammogram, [facility]. 07/25/2020 Bilateral Screening Mammogram, [facility]. 07/27/2021 Bilateral MG 3D screening mammo w/cad, [facility]. Tissue Density: The breast tissue is heterogeneously dense. This may lower the sensitivity of mammography. Findings: Analyzed By CAD. Postsurgical change right breast. Asymmetric density inferior left MLO view anterior depth does not persist on 3-D images. There is no suspicious group of microcalcifications or new suspicious mass in either breast. Overall Assessment: Benign, BI-RAD 2 Management: Screening Mammogram of both breasts in 1 year. See note below in regards to patient's increased five-year Awilda score. Patient should continue monthly self-breast exams. A clinical breast exam by your physician is recommended on an annual basis. This exam should not preclude additional follow-up of suspicious palpable abnormalities. Note on Awilda scores and lifetime risk: 1. A Awilda score greater than 3% is considered moderate risk. If this is the case, consider specialist referral to assess eligibility for a risk reducing agent. 2. If overall lifetime risk for the development of breast cancer is 20% or higher, the patient may qualify for future screening with alternating mammogram and breast MRI. Electronically signed and approved by: Kristin Gracia M.D. Radiologist
== END | disposition home or self-care (01) ==
LOC: RADMAMWWP 10:14
PROVIDERS: ATTEND Family Medicine
DX: Z12.31 Encounter for screening mammogram for malignant neoplasm of breast (principal); Z13.820 Encounter for screening for osteoporosis; M81.0 Age-related osteoporosis without current pathological fracture; M85.89 Other specified disorders of bone density and structure, multiple sites; Z78.0 Asymptomatic menopausal state; Z80.3 Family history of malignant neoplasm of breast
CPT/HCPCS: 77063; 77067; 77080

== ENCOUNTER → 2022-12-21 | Outpatient (CLI) | payer BC ==
[2022-12-21 19:15] LABS: ALT 24 U/L (8-44); AST 31 U/L (13-35); Albumin 4.8 d/dL (3.8-4.9); Albumin/Globulin Ratio 2.09 Ratio (1.60-3.17); Alkaline Phosphatase 60 U/L (41-126); BUN/Creat Ratio 23.43 Ratio (12.00-20.00); Blood Urea Nitrogen 16.4 mg/dL (9.0-27.0); C Reactive Protein <0.30 mg/dL (0.00-0.80); Calcium 9.9 mg/dL (8.7-10.3); Carbon Dioxide 27.5 mmol/L (21.6-31.8); Chloride 102 mmol/L (96-109); Chol/HDL Ratio 2.79 Ratio; Globulin 2.3 d/dL (1.6-3.3); Glucose 95 mg/dL (70-110); LDL Cholesterol,Calculated 122.8 mg/dL (0.0-131.0); Potassium 4.3 mmol/L (3.5-5.5); Rheumatoid Factor, Qnt <15 IU/mL (0-15); Sodium 140 mmol/L (135-145); T4, Free (Free Thyroxine) 1.15 ng/dL (0.80-1.80); Total Bilirubin <0.2 mg/dL (0.3-1.2); Total Protein 7.1 d/dL (6.2-8.2)
[2022-12-21 21:12] LABS: Basophils # (A) 0.05 X 10*3/uL (0.00-0.10); Eosinophils # (A) 0.21 X 10*3/uL (0.04-0.35); Eosinophils % (A) 4.2 %; HCT 39.6 % (37.2-46.3); Immature Grans, Automated 0 %; Lymphocytes # (A) 1.91 X 10*3/uL (0.90-5.00); Lymphocytes % (A) 38.5 %; MCH 29.9 pg (27.0-32.0); MCHC 32.8 d/dL (32.0-37.0); Mean Platelet Volume 9.9 FL (9.5-12.2); Monocytes # (A) 0.37 X 10*3/uL (0.20-1.00); Monocytes % (A) 7.5 %; NRBC Per 100 WBC 0 X 10*3/uL (0.00-0.01); Neutrophils # (A) 2.42 X 10*3/uL (1.80-7.70); Neutrophils % (A) 48.8 %; Platelet Count 438 X 10*3/uL (140-440); RBC 4.35 X 10*6/uL (4.10-5.20); RDW 12.9 % (11.5-14.5); WBC 4.96 X 10*3/uL (4.50-10.00)
[2022-12-21 21:42] LABS: Erythrocyte Sedimentation Rate 8 mm/Hr (0-30)
[2022-12-21 22:41] LABS: Anti-DNA, DS unit <1.0 IU/mL; Anti-Smith Ab Interp Negative (Negative); DNA Double-Stranded Negative (Negative)
== END | disposition home or self-care (01) ==
LOC: LABWHC1 14:34
PROVIDERS: ATTEND Internal Medicine Critical Care Medicine
DX: M25.60 Stiffness of unspecified joint, not elsewhere classified (principal); M79.7 Fibromyalgia; M19.90 Unspecified osteoarthritis, unspecified site; M06.9 Rheumatoid arthritis, unspecified
CPT/HCPCS: 36415; 80053; 80061; 82306; 83036; 84439; 84443; 85025; 85652; 86038; 86140; 86225; 86235; 86431

== ENCOUNTER → 2024-05-14 | Outpatient (CLI) | payer BC ==
[2024-05-14 10:20] LABS: Basophils # (A) 0.08 X 10*3/uL (0.00-0.10); Basophils % (A) 1.9 %; Eosinophils # (A) 0.35 X 10*3/uL (0.04-0.35); Eosinophils % (A) 8.1 %; HCT 40.5 % (37.2-46.3); HGB 13.3 g/dL (12.0-15.0); Lymphocytes # (A) 1.64 X 10*3/uL (0.90-5.00); Lymphocytes % (A) 38.1 %; MCH 29.8 pg (27.0-32.0); MCHC 32.8 g/dL (32.0-37.0); MCV 90.6 FL (80.0-97.0); Mean Platelet Volume 9.5 FL (9.5-12.2); Monocytes # (A) 0.38 X 10*3/uL (0.20-1.00); Monocytes % (A) 8.8 %; NRBC Per 100 WBC 0 X 10*3/uL (0.00-0.01); Neutrophils # (A) 1.85 X 10*3/uL (1.80-7.70); Neutrophils % (A) 42.9 %; Platelet Count 406 X 10*3/uL (140-440); RBC 4.47 X 10*6/uL (4.10-5.20); RDW 12.6 % (11.5-14.5); WBC 4.31 X 10*3/uL (4.50-10.00)
[2024-05-14 10:50] LABS: ALT 23 U/L (8-44); AST 35 U/L (13-35); Albumin 4.5 g/dL (3.8-4.9); Alkaline Phosphatase 74 U/L (41-126); BUN/Creat Ratio 26.57 Ratio (12.00-20.00); Blood Urea Nitrogen 18.6 mg/dL (9.0-27.0); Calcium 9.6 mg/dL (8.7-10.3); Chloride 103 mmol/L (96-109); Chol/HDL Ratio 3.09 Ratio; Globulin 2.5 g/dL (1.6-3.3); Glucose 90 mg/dL (70-110); LDL Cholesterol,Calculated 133.2 mg/dL (0.0-131.0); Potassium 4.4 mmol/L (3.5-5.5); Sodium 140 mmol/L (135-145); T4, Free (Free Thyroxine) 1.15 ng/dL (0.80-1.80); Total Bilirubin 0.3 mg/dL (0.3-1.2); VLDL Calculation 14.22 mg/dL (5.00-40.00)
== END | disposition home or self-care (01) ==
LOC: LABWHC1 07:43
PROVIDERS: ATTEND Internal Medicine Critical Care Medicine
DX: Z00.00 Encounter for general adult medical examination without abnormal findings (principal); J45.20 Mild intermittent asthma, uncomplicated; E78.00 Pure hypercholesterolemia, unspecified; E55.9 Vitamin D deficiency, unspecified; R09.1 Pleurisy
CPT/HCPCS: 36415; 80053; 80061; 82306; 83036; 84439; 84443; 85025

== ENCOUNTER → 2024-05-14 | Outpatient (CLI) | payer BC ==
--- NOTE | 2024-05-14 09:29 | MM ---
Reason for Exam: Screening (asymptomatic). Last mammogram was performed 1 year(s) and 9 month(s) ago. Patient History: Menarche at age 10. First Full-Term at age 24. Hysterectomy at age 53. Postmenopausal. Progesterone, starting at age 53. Hormonal Contraceptives for 20 years from age 18 until age 38. 09/12/2018, Benign Core Biopsy on the right side. Mother had breast cancer, age 68. Risk Values: Awilda 5 year model risk: 3.4%. NCI Lifetime model risk: 15.8%. Prior Study Comparison: 07/25/2020 Bilateral Screening Mammogram, [facility]. 07/27/2021 Bilateral MG 3D screening mammo w/cad, [facility]. 07/29/2022 Bilateral MG 3D screening mammo w/cad, [facility]. Tissue Density: The breasts are heterogeneously dense, which may obscure small masses. Findings: Analyzed By CAD. There is no suspicious group of microcalcifications or new suspicious mass in either breast. Benign-appearing 3 mm lymph node right axilla. Overall Assessment: Benign, BI-RAD 2 Management: Screening Mammogram of both breasts in 1 year. . Patient should continue monthly self-breast exams. A clinical breast exam by your physician is recommended on an annual basis. This exam should not preclude additional follow-up of suspicious palpable abnormalities. Note on Awilda scores and lifetime risk: 1. A Awilda score greater than 3% is considered moderate risk. If this is the case, consider specialist referral to assess eligibility for a risk reducing agent. 2. If overall lifetime risk for the development of breast cancer is 20% or higher, the patient may qualify for future screening with alternating mammogram and breast MRI. [facility], , 05/14/2024 9:26 AM. Electronically signed and approved by: Eugenio Trevizo M.D. [facility]
== END | disposition home or self-care (01) ==
LOC: RADMAMWWP 07:29
PROVIDERS: ATTEND Internal Medicine Critical Care Medicine
DX: Z12.31 Encounter for screening mammogram for malignant neoplasm of breast (principal); R92.333 Mammographic heterogeneous density, bilateral breasts; Z78.0 Asymptomatic menopausal state; Z80.3 Family history of malignant neoplasm of breast; Z92.0 Personal history of contraception
CPT/HCPCS: 77063; 77067